=== PATIENT | female | born 1965 | race Caucasian/White ===

== ENCOUNTER 2017-06-26 14:08 | Emergency (ER) | payer MEDICAID ==
--- NOTE | 2017-06-26 14:18 | EDM.PDOC ---
ED HPI GENERAL MEDICAL PROBLEM - General Stated Complaint: POSS BLADDER INFECTION Time Seen by Provider: 06/26/17 14:08 Source of Information: Reports: Patient History Limitations: Reports: No Limitations - History of Present Illness INITIAL COMMENTS - FREE TEXT/NARRATIVE: 52 y.o.w.f came to the ed with painfull urination, like it was when she had a UTI. No N/V/D, no Dizziness or any other acute medical issues. BP141/81 Pulse 110 RR 18 Pulse ox 93 Temp 36.9 Wt, refused Onset Date: 06/26/17 Onset Time: 04:00 Duration: Hour(s): Location: Reports: Pelvis Quality: Reports: Ache, Burning Severity: Mild Improves with: Reports: Rest Worsens with: Reports: Movement Context: Reports: Other - Related Data Allergies Allergy/AdvReac Type Severity Reaction Status Date / Time No Known Allergies Allergy Verified 06/26/17 14:25 Home Meds: Home Meds Baclofen 10 mg PO Q6H #20 tablet 09/21/13 [Rx] Naproxen [Naprosyn] 500 mg PO Q12HR #20 tab 09/21/13 [Rx] Social & Family History - Tobacco Use Years of Tobacco use: 30 ED ROS GENERAL - Review of Systems Review Of Systems: See Below Constitutional: Reports: No Symptoms HEENT: Reports: No Symptoms Respiratory: Reports: No Symptoms Cardiovascular: Reports: No Symptoms Endocrine: Reports: No Symptoms GI/Abdominal: Reports: No Symptoms : Reports: Dysuria Musculoskeletal: Reports: No Symptoms Skin: Reports: No Symptoms Neurological: Reports: No Symptoms Psychiatric: Reports: No Symptoms Hematologic/Lymphatic: Reports: No Symptoms Immunologic: Reports: No Symptoms ED EXAM, RENAL/ - Physical Exam Exam: See Below Exam Limited By: No Limitations General Appearance: Alert, WD/WN, Mild Distress Eye Exam: Bilateral Eye: Normal Inspection Ears: Normal External Exam Nose: Normal Inspection Throat/Mouth: Normal Inspection Head: Atraumatic, Normocephalic Neck: Normal Inspection, Supple, Non-Tender, Full Range of Motion Respiratory/Chest: No Respiratory Distress, Lungs Clear, Normal Breath Sounds, No Accessory Muscle Use Cardiovascular: Normal Peripheral Pulses, Regular Rate, Rhythm, No Edema, No Gallop, No JVD, No Murmur, No Rub GI/Abdominal: Normal Bowel Sounds, Soft, Non-Tender, No Organomegaly, No Distention, No Abnormal Bruit, No Mass (Female) Exam: Deferred Rectal (Female) Exam: Deferred Back Exam: Normal Inspection, Full Range of Motion Extremities: Normal Inspection, Normal Range of Motion, Non-Tender, No Pedal Edema Neurological: Alert, Oriented, CN II-XII Intact, Normal Cognition, Normal Gait, No Motor/Sensory Deficits Psychiatric: Normal Affect, Normal Mood Skin Exam: Warm, Dry, Intact, Normal Color, No Rash Lymphatic: No Adenopathy Course - Vital Signs Text/Narrative:: 52 y.o.w.f came to the ed with painfull urination, like it was when she had a UTI. No N/V/D, no Dizziness or any other acute medical issues. BP141/81 Pulse 110 RR 18 Pulse ox 93 Temp 36.9 Wt, refused PE: Morbid obese 52 y.o.w.f came to the ed with painfull urinations, no other complains Las: UA neg Impression: Dysuria Tx: Pt refused further W/U Plan: D/C with instructions Last Recorded V/S: Last Vital Signs Temp 36.6 C 06/26/17 14:10 Pulse 110 H 06/26/17 14:10 Resp 18 06/26/17 14:10 BP 148/81 H 06/26/17 14:10 Pulse Ox 93 L 06/26/17 14:10 - Orders/Labs/Meds Labs: Laboratory Tests 06/26/17 Range/Units 14:17 Urine Color Yellow (YELLOW) Urine Appearance Clear (CLEAR) Urine pH 6.0 (5.0-6.5) Ur Specific [place] 1.020 (1.010-1.025) Urine Protein Negative (NEGATIVE) mg/dL Urine Glucose (UA) Normal (NEGATIVE) mg/dL Urine Ketones Negative (NEGATIVE) mg/dL Urine Occult Blood Negative (NEGATIVE) Urine Nitrite Negative (NEGATIVE) Urine Bilirubin Negative (NEGATIVE) Urine Urobilinogen Normal (NEGATIVE) mg/dL Ur Leukocyte Esterase Negative (NEGATIVE) Urine WBC 0-5 (0) Ur Squamous Epith Cells Few H (NS,R,O) Urine Bacteria Few H (NS) Departure - Departure Time of Disposition: 14:43 Disposition: Home, Self-Care 01 Condition: Good Clinical Impression: Dysuria - Discharge Information Referrals: PCP,None [Primary Care Provider] - Forms: ED Department Discharge Additional Instructions: Your UA was neg, please f/u with your PMD, come back if your symptoms get worse acutely
== END 2017-06-26 14:45 | disposition home or self-care (01) ==
LOC: FB.ED 14:08
DX: R30.0 Dysuria (principal)
CPT/HCPCS: 81001; 99283

== ENCOUNTER 2020-12-23 11:56 | Inpatient (IN) | payer MEDICAID, OTHER ==
[2020-12-23] MEDS ORDERED: Albuterol/Ipratropium 3.0-0.5 MG/3 ML Neb Soln NEB ONE ×3 (12:27→14:22)
--- NOTE | 2020-12-23 12:50 | EDM.PDOC ---
ED HPI GENERAL MEDICAL PROBLEM - General Chief Complaint: Respiratory Problem Stated Complaint: COUGH Time Seen by Provider: 12/23/20 12:10 Source of Information: Reports: Patient, Family History Limitations: Reports: No Limitations - History of Present Illness INITIAL COMMENTS - FREE TEXT/NARRATIVE: c/o sob x 2d cough, nonproductive, no temp at home PO as low as 68% this am and sig other, who lives with here, said that she need to come to ED last hospitalized 1y ago in [place], in ICU 2-3d with a mask on, not intubated on home O2 prn x last yr, pt not sure why she needs home O2, does not know her lung dx, does not think she has COPD/emphysema/asthma smokes 1 ppd takes diuretic for swelling in legs, no prior CA or CVD that she knows of EKG with SR 78 now, no ST changes, no comparison thinks she may have RAMÓN, no mask, no overnight sleep study other than her last hosp h/o recurrent ST, has a slight ST, requesting a strep test, watches a grandchild regular 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, had an umbrella like device placed in her heart at age 37, on anticoagulation for awhile, not now saw PCP Isabelle Hansen 2w ago for annual exam, no change in her meds never gets flu vax, not had COVID, did have COVID vax x 2 6m ago no nebs or HFAs at home, just O2 on "dialysis for a few days" a year ago in [place], normal BUN/creat here 1y ago slight rhinorrhea PO 86% on 2 l/min NC (her home dose) on arrival at ED did have audible wheezing and typical COPD presentation - Related Data Allergies Allergy/AdvReac Type Severity Reaction Status Date / Time No Known Allergies Allergy Verified 06/26/17 14:25 Home Meds: Home Meds Baclofen 10 mg PO Q6H #20 tablet 09/21/13 [Rx] Naproxen [Naprosyn] 500 mg PO Q12HR #20 tab 09/21/13 [Rx] Social & Family History - Family History Family Medical History: No Pertinent Family History - Tobacco Use Tobacco Use Status *Q: Current Every Day Tobacco User Years of Tobacco use: 40 Packs/Tins Daily: 1 - Caffeine Use Caffeine Use: Reports: Coffee, Soda - Recreational Drug Use Recreational Drug Use: No ED ROS GENERAL - Review of Systems Review Of Systems: See Below Constitutional: Reports: No Symptoms. Denies: Fever, Chills HEENT: Reports: No Symptoms Respiratory: Reports: Shortness of Breath, Wheezing, Cough Cardiovascular: Reports: Edema. Denies: Chest Pain Endocrine: Reports: No Symptoms GI/Abdominal: Reports: No Symptoms : Reports: No Symptoms Musculoskeletal: Reports: No Symptoms Skin: Reports: No Symptoms Neurological: Reports: No Symptoms Psychiatric: Reports: No Symptoms Hematologic/Lymphatic: Reports: No Symptoms Immunologic: Reports: No Symptoms ED EXAM, GENERAL - Physical Exam Exam: See Below Exam Limited By: No Limitations General Appearance: Alert, WD/WN, Other (moderate dyspnea, nontoxic, conversant, wearing VM) Ears: Hearing Grossly Normal Nose: Normal Inspection Throat/Mouth: Normal Inspection, Normal Lips, Normal Teeth, Normal Oropharynx Head: Atraumatic, Normocephalic Neck: Normal Inspection, Supple, Non-Tender, Full Range of Motion. No: Lymphadenopathy (R), Lymphadenopathy (L) Respiratory/Chest: Chest Non-Tender, Decreased Breath Sounds, Wheezing, Accessory Muscle Use, Prolonged Expiration, Other (fair AE, symmetric, talk 6- word sentences, using accesory muscles, purse lips, no retractions, inc'd exp phase, end exp wheeze throughout). No: Crackles, Rales, Rhonchi, Stridor, Pleural Rub, Retractions, Splinting Cardiovascular: Regular Rate, Rhythm, No Murmur, Other (1-2+ edema to knees b/l) GI/Abdominal: Soft, Non-Tender, No Distention, Other (central obesity) Back Exam: Normal Inspection, Full Range of Motion. No: CVA Tenderness (R), CVA Tenderness (L) Extremities: Normal Inspection, Non-Tender, Pedal Edema Neurological: Alert, Oriented, CN II-XII Intact, Normal Cognition, No Motor/Sensory Deficits Psychiatric: Normal Affect, Normal Mood Skin Exam: Warm, Dry, Intact, Normal Color, No Rash Lymphatic: No Adenopathy #1 Interpretation EKG Date: 12/23/20 Time: 12:30 Rhythm: NSR Rate (Beats/Min): 78 [place]: Normal P-Wave: Present QRS: Normal ST-T: Normal QT: Normal Comparison: NA - No Prior EKG (mild low voltage c/w body habitus and possible c/w COPD, no ST/ischemic changes) Course - Vital Signs Last Recorded V/S: Last Vital Signs Temp 36.7 C 12/23/20 11:56 Pulse 85 12/23/20 11:56 Resp 24 H 12/23/20 11:56 BP 153/79 H 12/23/20 11:56 Pulse Ox 86 L 12/23/20 11:56 - Orders/Labs/Meds Orders: Active Orders 24 hr Category Date Time Status Admission Status [Patient Status] [ADT] Routine ADT 12/23/20 14:13 Ordered RT Aerosol Therapy [RC] ASDIRECTED Care 12/23/20 13:37 Active Chest 1V Frontal [CR] Stat Exams 12/23/20 12:27 Taken Isolation [COMM] Routine Oth 12/23/20 12:29 Ordered EKG 12 Lead [EK] Routine Ther 12/23/20 12:27 Ordered Labs: Laboratory Tests 12/23/20 12/23/20 12/23/20 Range/Units 12:39 12:45 12:45 WBC 12.3 H (3.0-10.3) x10-3/uL RBC 4.87 (3.60-5.20) x10(6)uL Hgb 13.4 (11.4-15.5) g/dL Hct 41.0 (34.2-48.2) % MCV 84.3 (76.7-100.5) fL MCH 27.5 (23.9-33.9) pg MCHC 32.6 (31.9-34.8) g/dL RDW 17.3 H (12.3-16.5) % Plt Count 281 (151-488) x10(3)uL MPV 8.2 (7.1-12.4) fL Neut % (Auto) 68.2 (30.8-76.2) % Lymph % (Auto) 21.0 (18.4-52.1) % [place] % (Auto) 8.4 (4.4-15.7) % Eos % (Auto) 1.9 (0.6-8.1) % Baso % (Auto) 0.5 (0.2-1.5) % Neut # (Auto) 8.4 H (1.5-6.3) x10-3/uL Lymph # (Auto) 2.6 (1.0-4.4) x10-3/uL [place] # (Auto) 1.0 (0.3-1.0) x10-3/uL Eos # (Auto) 0.2 (0.0-0.8) x10-3/uL Baso # (Auto) 0.1 (0.0-0.1) x10-3/uL POC VBG pH (7.32-7.43) pH Units POC VBG pCO2 (41-51) mmHg POC VBG HCO3 (22-29) mmol/L VBG Base Excess (-2 - 3+) mmol/L O2 Delivery Device Oxygen Flow Rate LPM Sodium 143 (135-145) mmol/L Potassium 4.6 (3.5-5.3) mmol/L Chloride 104 (100-110) mmol/L Carbon Dioxide 31 (21-32) mmol/L BUN 22 H (7-18) mg/dL Creatinine 1.2 H (0.55-1.02) mg/dL Est Cr Clr Drug Dosing 50.17 mL/min Estimated GFR (MDRD) 47 L (>60) BUN/Creatinine Ratio 18.3 (9-20) Glucose 93 (80-116) mg/dL Calcium 9.4 (8.6-10.2) mg/dL Total Bilirubin 0.3 (0.1-1.3) mg/dL AST 39 H D (5-25) IU/L ALT 72 H D (12-36) U/L Alkaline Phosphatase 124 H (56-112) IU/L Troponin I (4.0-60.3) pg/mL C-Reactive Protein (0.5-0.9) mg/dL Total Protein 8.1 H (6.0-8.0) g/dL Albumin 3.3 L (3.5-5.2) g/dL Globulin 4.8 g/dL Albumin/Globulin Ratio 0.7 SARS-CoV-2 RNA (SHAYY) Negative (NEGATIVE) Group A Strep (PCR) Not detected (NOT DETECT) 12/23/20 12/23/20 Range/Units 12:45 13:01 WBC (3.0-10.3) x10-3/uL RBC (3.60-5.20) x10(6)uL Hgb (11.4-15.5) g/dL Hct (34.2-48.2) % MCV (76.7-100.5) fL MCH (23.9-33.9) pg MCHC (31.9-34.8) g/dL RDW (12.3-16.5) % Plt Count (151-488) x10(3)uL MPV (7.1-12.4) fL Neut % (Auto) (30.8-76.2) % Lymph % (Auto) (18.4-52.1) % [place] % (Auto) (4.4-15.7) % Eos % (Auto) (0.6-8.1) % Baso % (Auto) (0.2-1.5) % Neut # (Auto) (1.5-6.3) x10-3/uL Lymph # (Auto) (1.0-4.4) x10-3/uL [place] # (Auto) (0.3-1.0) x10-3/uL Eos # (Auto) (0.0-0.8) x10-3/uL Baso # (Auto) (0.0-0.1) x10-3/uL POC VBG pH 7.30 L (7.32-7.43) pH Units POC VBG pCO2 68 H (41-51) mmHg POC VBG HCO3 33 H (22-29) mmol/L VBG Base Excess 4 H (-2 - 3+) mmol/L O2 Delivery Device Non rebr mask Oxygen Flow Rate 10 LPM Sodium (135-145) mmol/L Potassium (3.5-5.3) mmol/L Chloride (100-110) mmol/L Carbon Dioxide (21-32) mmol/L BUN (7-18) mg/dL Creatinine (0.55-1.02) mg/dL Est Cr Clr Drug Dosing mL/min Estimated GFR (MDRD) (>60) BUN/Creatinine Ratio (9-20) Glucose (80-116) mg/dL Calcium (8.6-10.2) mg/dL Total Bilirubin (0.1-1.3) mg/dL AST (5-25) IU/L ALT (12-36) U/L Alkaline Phosphatase (56-112) IU/L Troponin I 7.1 (4.0-60.3) pg/mL C-Reactive Protein 5.9 H* (0.5-0.9) mg/dL Total Protein (6.0-8.0) g/dL Albumin (3.5-5.2) g/dL Globulin g/dL Albumin/Globulin Ratio SARS-CoV-2 RNA (SHAYY) (NEGATIVE) Group A Strep (PCR) (NOT DETECT) Meds: Medications Discontinued Medications Generic Name Dose Route Start Last Admin Trade Name Freq PRN Reason Stop Dose Admin Albuterol/Ipratropium 3 ml 12/23/20 12:27 12/23/20 12:33 Albuterol/Ipratropium 3.0-0.5 Mg/3 Ml Neb Soln NEB 12/23/20 12:28 3 ml ONETIME ONE Administration Albuterol/Ipratropium 3 ml 12/23/20 13:37 12/23/20 13:44 Albuterol/Ipratropium 3.0-0.5 Mg/3 Ml Neb Soln NEB 12/23/20 13:38 3 ml ONETIME ONE Administration Azithromycin 500 mg 12/23/20 14:15 Azithromycin 500 Mg Tab PO 12/23/20 14:16 ONETIME ONE Ceftriaxone Sodium 1 gm 12/23/20 14:15 Ceftriaxone 1 Gm Vial IV 12/23/20 14:16 NOW ONE Methylprednisolone Sodium Succinate 125 mg 12/23/20 14:15 Methylprednisolone Sodium Succinate 125 Mg/2 Ml Sdv IVPUSH 12/23/20 14:16 ONETIME ONE Nicotine 21 mg 12/23/20 14:13 Nicotine 21 Mg/24 Hr Patch TRDERM 12/23/20 14:14 ONETIME ONE - Re-Assessments/Exams Free Text/Narrative Re-Assessment/Exam: 12/23/20 13:46 texting on phone, stated she felt better after 1st Duoneb improved AE, still moderate insp/exp wheeze creat 1.2, up from 0.7 one yr ago trop neg, EKG without ischemic changes CxR 1v on prelim ED read without flat diaphragms, no discrete infiltrates PO 96-100% on 10 l/min VM after 1st Duoneb, pt fell asleep after 1st Duoeb, said she had not been able to sleep all night 12/23/20 13:54 Epic reviewed, hosp 11/23 to 11/[address] [facility] with trimalleolar ankle fx and acute on chronic hypercapnic resp failure that is very likely d/t underlying obesity hypoventilation syndrome with RAMÓN 12/23/20 14:17 d/w Dr Hedrick who accepted pt in admission, pt agrees pt requested nicotine patch PO 85-88% still on 3 l/min NC after Duoneb x 2, has been switched back to VM Departure - Departure Time of Disposition: 14:18 Disposition: Admitted As Inpatient 67 Condition: Fair Clinical Impression: Acute respiratory failure with hypoxia and hypercapnia, Nicotine dependence, Morbid obesity, Elevated liver function tests, CKD (chronic kidney disease), Dependent edema, Elevated C-reactive protein (CRP), Elevated total protein - Discharge Information *PRESCRIPTION DRUG MONITORING PROGRAM REVIEWED*: Not Applicable *COPY OF PRESCRIPTION DRUG MONITORING REPORT IN PATIENT NATHAN: Not Applicable Referrals: Isabelle Hansen PA-C [Primary Care Provider] - Forms: ED Department Discharge Sepsis Event Note (ED) - Evaluation Sepsis Screening Result: No Definite Risk - Focused Exam Vital Signs: Vital Signs Temp Pulse Resp BP Pulse Ox 12/23/20 11:56 36.7 C 85 24 H 153/79 H 86 L - My Orders Last 24 Hours: My Active Orders 12/23/20 12:27 Chest 1V Frontal [CR] Stat EKG 12 Lead [EK] Routine 12/23/20 12:29 Isolation [COMM] Routine 12/23/20 13:37 RT Aerosol Therapy [RC] ASDIRECTED 12/23/20 14:13 Admission Status [Patient Status] [ADT] Routine - Assessment/Plan Last 24 Hours: My Active Orders 12/23/20 12:27 Chest 1V Frontal [CR] Stat EKG 12 Lead [EK] Routine 12/23/20 12:29 Isolation [COMM] Routine 12/23/20 13:37 RT Aerosol Therapy [RC] ASDIRECTED 12/23/20 14:13 Admission Status [Patient Status] [ADT] Routine
[2020-12-23 13:05] LABS: BASE EXCESS VENOUS,POC 4 mmol/L (-2 - 3+); PCO2 VENOUS,POC 68 mmHg (41-51)
[2020-12-23 13:20] LABS: STREP A BY PCR NOT DETECTED (NOT DETECT)
[2020-12-23 13:41] LABS: CORONAVIRUS COVID-19 NAA NEGATIVE (NEGATIVE)
[2020-12-23] MEDS ORDERED: Nicotine 21 MG/24 Hr Patch TRDERM ONE (14:13)
[2020-12-23] MEDS ORDERED: cefTRIAXone 1 GM Vial IV ONE (14:15)
[2020-12-23] MEDS ORDERED: Azithromycin 500 MG Tab PO ONE (14:15)
[2020-12-23] MEDS ORDERED: methylPREDNISolone Sodium Succinate 125 MG/2 ML SDV IVPUSH ONE (14:15)
[2020-12-23] MEDS: Enoxaparin 40 MG/0.4 ML Syringe SUBCUT SCH (16:08)
--- NOTE | 2020-12-23 16:17 | PCM.HP.2 ---
H&P History of Present Illness - General Date of Service: 12/23/20 Admit Problem/Dx: Admission Diagnosis/Problem Admission Diagnosis/Problem Hypoxia Source of Information: Patient, Old Records, Provider History Limitations: Reports: No Limitations - History of Present Illness Initial Comments - Free Text/Narative: 55-year-old lady with a past medical history significant for morbid obesity with a BMI greater than 50, cigarette smoking/tobacco abuse, COPD, hypertension, and a history 1 year ago of acute on chronic hypercapnic hypoxic respiratory failure came to the emergency department for evaluation and treatment of a 2-day history of cough and shortness of breath. She was afebrile at home and is fully vaccinated against Covid. Testing for Covid, influenza, and strep were negative in the emergency department. Troponin and EKG were negative. She has a history of having been recommended for sleep apnea testing but has never been tested. She continues to smoke 1 pack of cigarettes per day. She is treated for hypertension and for edema. She is a poor historian at this time and does not know if she has been taking all of her medications as prescribed. She thinks that she was only recently prescribed her "water pill" and that she has only been taking it for about a week, and may be. She was sent home from the hospital last year with home O2 and uses it as needed. She denies chest pain, nausea, vomiting, any change in her bowel or bladder habits. She does state that she has increased edema in her bilateral lower extremities. Back Pain Score (Numeric/FACES): 9 - Related Data Allergies/Adverse Reactions: Allergies Allergy/AdvReac Type Severity Reaction Status Date / Time No Known Allergies Allergy Verified 06/26/17 14:25 Home Medications: Home Meds Aspirin 325 mg PO DAILY 12/23/20 [History] Aspirin/Acetaminophen/Caffeine [[facility] Migraine Relief Caplet] 1 tab PO DAILY PRN 12/23/20 [History] Cyclobenzaprine [Flexeril] 10 mg PO TID PRN 12/23/20 [History] Dextroamphetamine/Amphetamine [Adderall 20 mg Tablet] 20 mg PO TID 12/23/20 [History] Famotidine 40 mg PO BEDTIME 12/23/20 [History] Gabapentin [Neurontin] 3 cap PO TID 12/23/20 [History] Nicotine [Nicotine Patch] 1 patch TOP DAILY 12/23/20 [History] Promethazine [Phenergan] 25 mg PO Q4H PRN 12/23/20 [History] Torsemide 5 mg PO DAILY 12/23/20 [History] Venlafaxine [Effexor XR] 150 mg PO DAILY 12/23/20 [History] amLODIPine [Norvasc] 10 mg PO DAILY 12/23/20 [History] atorvaSTATin Calcium [Lipitor] 20 mg PO DAILY 12/23/20 [History] hydroCHLOROthiazide [Hydrochlorothiazide] 12.5 mg PO DAILY 12/23/20 [History] lisinopriL [Lisinopril] 40 mg PO DAILY 12/23/20 [History] risperiDONE [Risperidone] 1 mg PO BEDTIME 12/23/20 [History] traMADol [Ultram] 50 mg PO Q6H PRN 12/23/20 [History] traZODone 300 mg PO BEDTIME 12/23/20 [History] Social & Family History - Family History Family Medical History: No Pertinent Family History - Tobacco Use Tobacco Use Status *Q: Current Every Day Tobacco User Years of Tobacco use: 35 Packs/Tins Daily: 1 - Caffeine Use Caffeine Use: Reports: Coffee, Soda - Recreational Drug Use Recreational Drug Use: No H&P Review of Systems - Review of Systems: Review Of Systems: See Below General: Reports: Weakness HEENT: Reports: No Symptoms Pulmonary: Reports: Shortness of Breath, Wheezing, Cough Cardiovascular: Reports: No Symptoms Gastrointestinal: Reports: No Symptoms Genitourinary: Reports: No Symptoms Musculoskeletal: Reports: No Symptoms Skin: Reports: Other (Rash under her breasts and pannus) Psychiatric: Reports: No Symptoms Neurological: Reports: No Symptoms Hematologic/Lymphatic: Reports: No Symptoms Immunologic: Reports: No Symptoms Exam - Exam Exam: See Below - Vital Signs Vital Signs: Last Vital Signs Temp 36.7 C 12/23/20 11:56 Pulse 85 12/23/20 11:56 Resp 24 H 12/23/20 11:56 BP 153/79 H 12/23/20 11:56 Pulse Ox 86 L 12/23/20 11:56 Weight: 169.145 kg (Patient initially seem to be confused but once she was settled then sitting up and with a slight reversed calibered she felt better and asked for lunch) - Exam Quality Assessment: Supplemental Oxygen, DVT Prophylaxis General: Alert, Oriented, Cooperative, Mild Distress HEENT: EOMI Lungs: Decreased Breath Sounds, Crackles, Wheezing Cardiovascular: Regular Rate, Regular Rhythm, Other (Heart sounds are distant and difficult to auscultate) GI/Abdominal Exam: Normal Bowel Sounds, Non-Tender Back Exam: Normal Inspection. No: CVA Tenderness (R), CVA Tenderness (L) Extremities: Pedal Edema, Other (Bilateral lower extremity stasis dermatitis) Peripheral Pulses: 2+: Radial (L), Radial (R) Skin: Warm, Dry Neuro Extensive - Mental Status: Alert Psychiatric: Alert, Anxious - Patient Data Lab Results Last 24 hrs: Laboratory Results - last 24 hr 12/23/20 12/23/20 12/23/20 Range/Units 12:39 12:45 12:45 WBC 12.3 H (3.0-10.3) x10-3/uL RBC 4.87 (3.60-5.20) x10(6)uL Hgb 13.4 (11.4-15.5) g/dL Hct 41.0 (34.2-48.2) % MCV 84.3 (76.7-100.5) fL MCH 27.5 (23.9-33.9) pg MCHC 32.6 (31.9-34.8) g/dL RDW 17.3 H (12.3-16.5) % Plt Count 281 (151-488) x10(3)uL MPV 8.2 (7.1-12.4) fL Neut % (Auto) 68.2 (30.8-76.2) % Lymph % (Auto) 21.0 (18.4-52.1) % [place] % (Auto) 8.4 (4.4-15.7) % Eos % (Auto) 1.9 (0.6-8.1) % Baso % (Auto) 0.5 (0.2-1.5) % Neut # (Auto) 8.4 H (1.5-6.3) x10-3/uL Lymph # (Auto) 2.6 (1.0-4.4) x10-3/uL [place] # (Auto) 1.0 (0.3-1.0) x10-3/uL Eos # (Auto) 0.2 (0.0-0.8) x10-3/uL Baso # (Auto) 0.1 (0.0-0.1) x10-3/uL POC VBG pH (7.32-7.43) pH Units POC VBG pCO2 (41-51) mmHg POC VBG HCO3 (22-29) mmol/L VBG Base Excess (-2 - 3+) mmol/L O2 Delivery Device Oxygen Flow Rate LPM Sodium 143 (135-145) mmol/L Potassium 4.6 (3.5-5.3) mmol/L Chloride 104 (100-110) mmol/L Carbon Dioxide 31 (21-32) mmol/L BUN 22 H (7-18) mg/dL Creatinine 1.2 H (0.55-1.02) mg/dL Est Cr Clr Drug Dosing 50.17 mL/min Estimated GFR (MDRD) 47 L (>60) BUN/Creatinine Ratio 18.3 (9-20) Glucose 93 (80-116) mg/dL Calcium 9.4 (8.6-10.2) mg/dL Total Bilirubin 0.3 (0.1-1.3) mg/dL AST 39 H D (5-25) IU/L ALT 72 H D (12-36) U/L Alkaline Phosphatase 124 H (56-112) IU/L Troponin I (4.0-60.3) pg/mL C-Reactive Protein (0.5-0.9) mg/dL Total Protein 8.1 H (6.0-8.0) g/dL Albumin 3.3 L (3.5-5.2) g/dL Globulin 4.8 g/dL Albumin/Globulin Ratio 0.7 SARS-CoV-2 RNA (SHAYY) Negative (NEGATIVE) Group A Strep (PCR) Not detected (NOT DETECT) 12/23/20 12/23/20 Range/Units 12:45 13:01 WBC (3.0-10.3) x10-3/uL RBC (3.60-5.20) x10(6)uL Hgb (11.4-15.5) g/dL Hct (34.2-48.2) % MCV (76.7-100.5) fL MCH (23.9-33.9) pg MCHC (31.9-34.8) g/dL RDW (12.3-16.5) % Plt Count (151-488) x10(3)uL MPV (7.1-12.4) fL Neut % (Auto) (30.8-76.2) % Lymph % (Auto) (18.4-52.1) % [place] % (Auto) (4.4-15.7) % Eos % (Auto) (0.6-8.1) % Baso % (Auto) (0.2-1.5) % Neut # (Auto) (1.5-6.3) x10-3/uL Lymph # (Auto) (1.0-4.4) x10-3/uL [place] # (Auto) (0.3-1.0) x10-3/uL Eos # (Auto) (0.0-0.8) x10-3/uL Baso # (Auto) (0.0-0.1) x10-3/uL POC VBG pH 7.30 L (7.32-7.43) pH Units POC VBG pCO2 68 H (41-51) mmHg POC VBG HCO3 33 H (22-29) mmol/L VBG Base Excess 4 H (-2 - 3+) mmol/L O2 Delivery Device Non rebr mask Oxygen Flow Rate 10 LPM Sodium (135-145) mmol/L Potassium (3.5-5.3) mmol/L Chloride (100-110) mmol/L Carbon Dioxide (21-32) mmol/L BUN (7-18) mg/dL Creatinine (0.55-1.02) mg/dL Est Cr Clr Drug Dosing mL/min Estimated GFR (MDRD) (>60) BUN/Creatinine Ratio (9-20) Glucose (80-116) mg/dL Calcium (8.6-10.2) mg/dL Total Bilirubin (0.1-1.3) mg/dL AST (5-25) IU/L ALT (12-36) U/L Alkaline Phosphatase (56-112) IU/L Troponin I 7.1 (4.0-60.3) pg/mL C-Reactive Protein 5.9 H* (0.5-0.9) mg/dL Total Protein (6.0-8.0) g/dL Albumin (3.5-5.2) g/dL Globulin g/dL Albumin/Globulin Ratio SARS-CoV-2 RNA (SHAYY) (NEGATIVE) Group A Strep (PCR) (NOT DETECT) Result Diagrams: 12/23/20 12:45 12/23/20 12:45 Pierre Results Last 24 hrs: Microbiology 12/23/20 12:39 Influenza Type A Antigen Screen - Final Nasal, Unspecified NEGATIVE INFLUENZA A VIRUS AG REFERENCE RANGE: NEGATIVE Influenza Type B Antigen Screen - Final NEGATIVE INFLUENZA B VIRUS AG REFERENCE RANGE: NEGATIVE Sepsis Event Note - Evaluation Sepsis Screening Result: No Definite Risk - Focused Exam Vital Signs: Vital Signs Temp Pulse Resp BP Pulse Ox 12/23/20 11:56 36.7 C 85 24 H 153/79 H 86 L - Problem List (1) Leukocytosis SNOMED Code(s): 047698930, 112927932 ICD Code: D72.829 - ELEVATED WHITE BLOOD CELL COUNT, UNSPECIFIED Status: Acute Current Visit: Yes (2) Chronic low back pain SNOMED Code(s): 319128585 ICD Code: M54.5 - LOW BACK PAIN; G89.29 - OTHER CHRONIC PAIN Status: Chronic Current Visit: No (3) Elevated C-reactive protein (CRP) SNOMED Code(s): 140259739899039 ICD Code: R79.82 - ELEVATED C-REACTIVE PROTEIN (CRP) Status: Acute Current Visit: Yes (4) Acute respiratory failure with hypoxia and hypercapnia SNOMED Code(s): 838136047 ICD Code: J96.01 - ACUTE RESPIRATORY FAILURE WITH HYPOXIA; J96.02 - ACUTE RESPIRATORY FAILURE WITH HYPERCAPNIA Status: Acute Current Visit: Yes (5) Nicotine dependence SNOMED Code(s): 20180517 ICD Code: F17.200 - NICOTINE DEPENDENCE, UNSPECIFIED, UNCOMPLICATED Status: Chronic Current Visit: Yes (6) Morbid obesity SNOMED Code(s): 321715480 ICD Code: E66.01 - MORBID (SEVERE) OBESITY DUE TO EXCESS CALORIES Status: Chronic Current Visit: Yes (7) Dependent edema SNOMED Code(s): 573079939 ICD Code: R60.9 - EDEMA, UNSPECIFIED Status: Acute Current Visit: Yes (8) Acute respiratory acidosis SNOMED Code(s): 53633379 ICD Code: E87.2 - ACIDOSIS Status: Acute Current Visit: Yes Problem List Initiated/Reviewed/Updated: Yes Orders Last 24hrs: Active Orders 24 hr Category Date Time Status Admission Status [Patient Status] [ADT] Routine ADT 12/23/20 14:13 Active Patient Status [ADT] Routine ADT 12/23/20 15:54 Ordered Antiembolic Devices [RC] .Routine Care 12/23/20 15:55 Ordered Overnight Pulse Oximetry [RC] Click to Edit Care 12/23/20 15:52 Ordered Oxygen Therapy [RC] CONTINUOUS Care 12/23/20 15:57 Ordered POC Glucose [Blood Glucose Check, Bedside] [RC] Care 12/23/20 16:07 Ordered WITHMEALSANDBED Pulse Oximetry [RC] PRN Care 12/23/20 15:54 Ordered RT Aerosol Therapy [RC] ASDIRECTED Care 12/23/20 13:37 Active RT Aerosol Therapy [RC] ASDIRECTED Care 12/23/20 14:23 Active RT Aerosol Therapy [RC] ASDIRECTED Care 12/23/20 16:06 Ordered Telemetry Monitoring [Cardiac Monitoring] [RC] .As Care 12/23/20 15:50 Ordered Directed Up With Assistance [RC] ASDIRECTED Care 12/23/20 15:54 Ordered Vital Signs [RC] Q4H Care 12/23/20 15:54 Ordered Heart Healthy Diet [DIET] Diet 12/23/20 Dinner Ordered Chest 1V Frontal [CR] Stat Exams 12/23/20 12:27 Taken SOCRATES PREP [MYC] Routine Lab 12/23/20 16:03 Ordered PRO B-TYPE NATRIUR PEPT,BNPPRO [CHEM] Routine Lab 12/23/20 15:41 Ordered Albuterol/Ipratropium [DuoNeb 3.0-0.5 MG/3 ML] Med 12/23/20 16:06 Ordered 3 ml NEB Q2H PRN Azithromycin [Zithromax] Med 12/24/20 08:00 Ordered 500 mg PO Q24H Enoxaparin [Lovenox] Med 12/23/20 16:00 Ordered 40 mg SUBCUT Q12H cefTRIAXone [Rocephin] Med 12/24/20 08:00 Ordered 1 gm IVPUSH Q24H methylPREDNISolone Sod Succ [Solu-MEDROL] Med 12/24/20 09:00 Ordered 125 mg IVPUSH DAILY LAWRENCE Bandage [Elastic Wrap] [OM.PC] Routine Oth 12/23/20 15:58 Ordered DVT/VTE Prophylaxis Reflex [OM.PC] Per Unit Routine Oth 12/23/20 15:54 Ordered Isolation [COMM] Routine Oth 12/23/20 12:29 Ordered Pulse Oximetry Continuous Monitoring [OM.PC] Routine Oth 12/23/20 15:52 Ordered Resuscitation Status Routine Resus Stat 12/23/20 15:54 Ordered EKG 12 Lead [EK] Routine Ther 12/23/20 12:27 Ordered Medication Orders Albuterol/Ipratropium (Albuterol/Ipratropium 3.0-0.5 Mg/3 Ml Neb Soln) 3 ml NEB Q2H PRN PRN Reason: Shortness of Breath Azithromycin (Azithromycin 500 Mg Tab) 500 mg PO Q24H ANGELINE Stop: 12/25/20 23:59 Ceftriaxone Sodium (Ceftriaxone 1 Gm Vial) 1 gm IVPUSH Q24H ANGELINE Enoxaparin Sodium (Enoxaparin 40 Mg/0.4 Ml Syringe) 40 mg SUBCUT Q12H ANGELINE Last Admin: 12/23/20 16:08 Dose: 40 mg Documented by: KELECHI Methylprednisolone Sodium Succinate (Methylprednisolone Sodium Succinate 125 Mg/2 Ml Sdv) 125 mg IVPUSH DAILY [facility] Assessment/Plan Comment:: 1. Admit to inpatient for treatment of acute on chronic hypoxic, hypercapnic respiratory failure secondary to COPD, morbid obesity, and likely RAMÓN. This is all part of the obesity hypoventilation syndrome. Patient will be given supplemental oxygen titrated to greater than 88% and supplemental oxygen will be weaned off at 94%. 2. Treatment with azithromycin, 500 mg IV, for a total of 3 days; ceftriaxone, 1 g IV daily until discharge; Solu-Medrol, 125 mg IV daily for 3 days; duo nebs every 2 hours as needed for shortness of breath and/or wheezing 3. Dependent edema: We will restart patient's diuretic and wrapped the patient's legs with Lawrence bandage to the knees 4. Hypertension: Restart patient's home antihypertensive medications and monitor vital signs every 4 hours 5. Obesity: We will monitor blood sugars with meals and at bedtime and will add sliding scale insulin if indicated. Watch for hyperglycemia secondary to high- dose Solu-Medrol, heart healthy diet 6. DVT prophylaxis: 40 mg enoxaparin subcu every 12 hours 7. GI prophylaxis: Heart healthy diet, restart patient's home medicationfamotidine 40 mg tablet 8. Disposition: Pending respiratory improvement, likely 2 to 3 days
[2020-12-23] MEDS ORDERED: Ondansetron 4 MG/2 ML SDV IVPUSH PRN (16:33)
[2020-12-23] MEDS: Furosemide 20 MG/2 ML VIAL IVPUSH SCH (17:14)
[2020-12-23] MEDS: Sodium Chloride 0.9% 10 ML Syringe FLUSH PRN ×2 (17:25→23:47)
[2020-12-23] MEDS: Pantoprazole 40 MG Tab.CR PO SCH ×2 (20:47→21:03)
[2020-12-23] MEDS: risperiDONE 1 MG Tab PO SCH (20:58)
[2020-12-23] MEDS: traZODone 100 MG Tab PO SCH (20:59)
[2020-12-23 21:23] LABS: BASE EXCESS VENOUS,POC 1 mmol/L (-2 - 3+); PCO2 VENOUS,POC 81 mmHg (41-51); PH VENOUS,POC 7.21 pH Units (7.32-7.43)
[2020-12-23] MEDS: Albuterol/Ipratropium 3.0-0.5 MG/3 ML Neb Soln NEB PRN (22:48)
[2020-12-23 23:09] LABS: BASE EXCESS VENOUS,POC 2 mmol/L (-2 - 3+); PCO2 VENOUS,POC 71 mmHg (41-51); PH VENOUS,POC 7.25 pH Units (7.32-7.43)
[2020-12-23] MEDS: Albuterol/Ipratropium 3.0-0.5 MG/3 ML Neb Soln NEB SCH (23:38)
[2020-12-23] MEDS: Albuterol 0.083% 2.5 MG/3 ML Neb Soln NEB SCH (23:47)
[2020-12-23] MEDS: methylPREDNISolone Sodium Succinate 125 MG/2 ML SDV IVPUSH SCH (23:47)
[2020-12-24] MEDS: Enoxaparin 40 MG/0.4 ML Syringe SUBCUT SCH ×2 (04:06→15:35)
[2020-12-24] MEDS: Albuterol 0.083% 2.5 MG/3 ML Neb Soln NEB SCH ×4 (04:06→23:15)
[2020-12-24] MEDS: methylPREDNISolone Sodium Succinate 125 MG/2 ML SDV IVPUSH SCH (04:08)
[2020-12-24] MEDS: Albuterol/Ipratropium 3.0-0.5 MG/3 ML Neb Soln NEB SCH ×4 (04:08→23:23)
[2020-12-24] MEDS: Sodium Chloride 0.9% 10 ML Syringe FLUSH PRN ×2 (04:08→19:54)
[2020-12-24] MEDS: amLODIPine 10 MG Tab PO SCH (08:34)
[2020-12-24] MEDS: Azithromycin 500 MG Tab PO SCH (08:34)
[2020-12-24] MEDS: atorvaSTATin 20 MG Tab PO SCH (08:34)
[2020-12-24] MEDS: Furosemide 20 MG/2 ML VIAL IVPUSH SCH (08:35)
[2020-12-24] MEDS: cefTRIAXone 1 GM Vial IVPUSH SCH (08:35)
[2020-12-24] MEDS ORDERED: Hydrochlorothiazide 12.5 MG Cap PO SCH (09:00)
[2020-12-24] MEDS ORDERED: methylPREDNISolone Sodium Succinate 125 MG/2 ML SDV IVPUSH SCH (09:00)
[2020-12-24] MEDS: Venlafaxine 150 MG Cap.ER PO SCH (09:00)
--- NOTE | 2020-12-24 09:49 | PCM.PN ---
- General Info Date of Service: 12/24/20 Admission Dx/Problem (Free Text): Admission Diagnosis/Problem Admission Diagnosis/Problem Hypoxia Subjective Update: Patient states that she feels much better today and that her coughing is greatly reduced. She does have some pain in her side/muscle tightness from coughing but overall states that she feels much better Functional Status: Reports: Pain Controlled, Tolerating Diet, Ambulating, Urinat ing - Review of Systems General: Reports: No Symptoms HEENT: Reports: No Symptoms Pulmonary: Reports: Shortness of Breath, Cough Cardiovascular: Reports: No Symptoms Gastrointestinal: Reports: No Symptoms Genitourinary: Reports: No Symptoms Musculoskeletal: Reports: Foot Pain Skin: Reports: Rash Neurological: Reports: No Symptoms Psychiatric: Reports: No Symptoms - Patient Data Vitals - Most Recent: Last Vital Signs Temp 36.8 C 12/24/20 08:00 Pulse 96 12/24/20 08:00 Resp 22 H 12/24/20 08:00 BP 129/68 12/24/20 08:34 Pulse Ox 90 L 12/24/20 08:20 Weight - Most Recent: 169.145 kg (Patient initially seem to be confused but once she was settled then sitting up and with a slight reversed calibered she felt better and asked for lunch) I&O - Last 24 Hours: Intake & Output 12/23/20 12/24/20 12/24/20 22:59 06:59 14:59 Intake Total 360 Balance 360 Lab Results Last 24 Hours: Laboratory Results - last 24 hr 12/23/20 12/23/20 12/23/20 Range/Units 12:39 12:45 12:45 WBC 12.3 H (3.0-10.3) x10-3/uL RBC 4.87 (3.60-5.20) x10(6)uL Hgb 13.4 (11.4-15.5) g/dL Hct 41.0 (34.2-48.2) % MCV 84.3 (76.7-100.5) fL MCH 27.5 (23.9-33.9) pg MCHC 32.6 (31.9-34.8) g/dL RDW 17.3 H (12.3-16.5) % Plt Count 281 (151-488) x10(3)uL MPV 8.2 (7.1-12.4) fL Neut % (Auto) 68.2 (30.8-76.2) % Lymph % (Auto) 21.0 (18.4-52.1) % Scott % (Auto) 8.4 (4.4-15.7) % Eos % (Auto) 1.9 (0.6-8.1) % Baso % (Auto) 0.5 (0.2-1.5) % Neut # (Auto) 8.4 H (1.5-6.3) x10-3/uL Lymph # (Auto) 2.6 (1.0-4.4) x10-3/uL Scott # (Auto) 1.0 (0.3-1.0) x10-3/uL Eos # (Auto) 0.2 (0.0-0.8) x10-3/uL Baso # (Auto) 0.1 (0.0-0.1) x10-3/uL Add Manual Diff Neutrophils % (Manual) (46-82) % Band Neutrophils % (0-6) % Lymphocytes % (Manual) (13-37) % Monocytes % (Manual) (4-12) % POC VBG pH (7.32-7.43) pH Units POC VBG pCO2 (41-51) mmHg POC VBG HCO3 (22-29) mmol/L VBG Base Excess (-2 - 3+) mmol/L O2 Delivery Device Oxygen Flow Rate LPM Sodium 143 (135-145) mmol/L Potassium 4.6 (3.5-5.3) mmol/L Chloride 104 (100-110) mmol/L Carbon Dioxide 31 (21-32) mmol/L BUN 22 H (7-18) mg/dL Creatinine 1.2 H (0.55-1.02) mg/dL Est Cr Clr Drug Dosing 50.17 mL/min Estimated GFR (MDRD) 47 L (>60) BUN/Creatinine Ratio 18.3 (9-20) Glucose 93 (80-116) mg/dL POC Glucose (80-116) mg/dL Calcium 9.4 (8.6-10.2) mg/dL Total Bilirubin 0.3 (0.1-1.3) mg/dL AST 39 H D (5-25) IU/L ALT 72 H D (12-36) U/L Alkaline Phosphatase 124 H (56-112) IU/L Troponin I (4.0-60.3) pg/mL C-Reactive Protein (0.5-0.9) mg/dL NT-Pro-B Natriuret Pep (<=125) pg/mL Total Protein 8.1 H (6.0-8.0) g/dL Albumin 3.3 L (3.5-5.2) g/dL Globulin 4.8 g/dL Albumin/Globulin Ratio 0.7 SARS-CoV-2 RNA (SHAYY) Negative (NEGATIVE) Group A Strep (PCR) Not detected (NOT DETECT) 12/23/20 12/23/20 12/23/20 Range/Units 12:45 12:45 13:01 WBC (3.0-10.3) x10-3/uL RBC (3.60-5.20) x10(6)uL Hgb (11.4-15.5) g/dL Hct (34.2-48.2) % MCV (76.7-100.5) fL MCH (23.9-33.9) pg MCHC (31.9-34.8) g/dL RDW (12.3-16.5) % Plt Count (151-488) x10(3)uL MPV (7.1-12.4) fL Neut % (Auto) (30.8-76.2) % Lymph % (Auto) (18.4-52.1) % Scott % (Auto) (4.4-15.7) % Eos % (Auto) (0.6-8.1) % Baso % (Auto) (0.2-1.5) % Neut # (Auto) (1.5-6.3) x10-3/uL Lymph # (Auto) (1.0-4.4) x10-3/uL Scott # (Auto) (0.3-1.0) x10-3/uL Eos # (Auto) (0.0-0.8) x10-3/uL Baso # (Auto) (0.0-0.1) x10-3/uL Add Manual Diff Neutrophils % (Manual) (46-82) % Band Neutrophils % (0-6) % Lymphocytes % (Manual) (13-37) % Monocytes % (Manual) (4-12) % POC VBG pH 7.30 L (7.32-7.43) pH Units POC VBG pCO2 68 H (41-51) mmHg POC VBG HCO3 33 H (22-29) mmol/L VBG Base Excess 4 H (-2 - 3+) mmol/L O2 Delivery Device Non rebr mask Oxygen Flow Rate 10 LPM Sodium (135-145) mmol/L Potassium (3.5-5.3) mmol/L Chloride (100-110) mmol/L Carbon Dioxide (21-32) mmol/L BUN (7-18) mg/dL Creatinine (0.55-1.02) mg/dL Est Cr Clr Drug Dosing mL/min Estimated GFR (MDRD) (>60) BUN/Creatinine Ratio (9-20) Glucose (80-116) mg/dL POC Glucose (80-116) mg/dL Calcium (8.6-10.2) mg/dL Total Bilirubin (0.1-1.3) mg/dL AST (5-25) IU/L ALT (12-36) U/L Alkaline Phosphatase (56-112) IU/L Troponin I 7.1 (4.0-60.3) pg/mL C-Reactive Protein 5.9 H* (0.5-0.9) mg/dL NT-Pro-B Natriuret Pep 79 (<=125) pg/mL Total Protein (6.0-8.0) g/dL Albumin (3.5-5.2) g/dL Globulin g/dL Albumin/Globulin Ratio SARS-CoV-2 RNA (SHAYY) (NEGATIVE) Group A Strep (PCR) (NOT DETECT) 12/23/20 12/23/20 12/23/20 Range/Units 17:47 20:40 21:14 WBC (3.0-10.3) x10-3/uL RBC (3.60-5.20) x10(6)uL Hgb (11.4-15.5) g/dL Hct (34.2-48.2) % MCV (76.7-100.5) fL MCH (23.9-33.9) pg MCHC (31.9-34.8) g/dL RDW (12.3-16.5) % Plt Count (151-488) x10(3)uL MPV (7.1-12.4) fL Neut % (Auto) (30.8-76.2) % Lymph % (Auto) (18.4-52.1) % Scott % (Auto) (4.4-15.7) % Eos % (Auto) (0.6-8.1) % Baso % (Auto) (0.2-1.5) % Neut # (Auto) (1.5-6.3) x10-3/uL Lymph # (Auto) (1.0-4.4) x10-3/uL Scott # (Auto) (0.3-1.0) x10-3/uL Eos # (Auto) (0.0-0.8) x10-3/uL Baso # (Auto) (0.0-0.1) x10-3/uL Add Manual Diff Neutrophils % (Manual) (46-82) % Band Neutrophils % (0-6) % Lymphocytes % (Manual) (13-37) % Monocytes % (Manual) (4-12) % POC VBG pH 7.21 L* (7.32-7.43) pH Units POC VBG pCO2 81 H (41-51) mmHg POC VBG HCO3 32 H (22-29) mmol/L VBG Base Excess 1 (-2 - 3+) mmol/L O2 Delivery Device Simple mask Oxygen Flow Rate 4 LPM Sodium (135-145) mmol/L Potassium (3.5-5.3) mmol/L Chloride (100-110) mmol/L Carbon Dioxide (21-32) mmol/L BUN (7-18) mg/dL Creatinine (0.55-1.02) mg/dL Est Cr Clr Drug Dosing mL/min Estimated GFR (MDRD) (>60) BUN/Creatinine Ratio (9-20) Glucose (80-116) mg/dL POC Glucose 151 H 155 H (80-116) mg/dL Calcium (8.6-10.2) mg/dL Total Bilirubin (0.1-1.3) mg/dL AST (5-25) IU/L ALT (12-36) U/L Alkaline Phosphatase (56-112) IU/L Troponin I (4.0-60.3) pg/mL C-Reactive Protein (0.5-0.9) mg/dL NT-Pro-B Natriuret Pep (<=125) pg/mL Total Protein (6.0-8.0) g/dL Albumin (3.5-5.2) g/dL Globulin g/dL Albumin/Globulin Ratio SARS-CoV-2 RNA (SHAYY) (NEGATIVE) Group A Strep (PCR) (NOT DETECT) 12/23/20 12/24/20 12/24/20 Range/Units 23:06 06:15 06:15 WBC 11.4 H (3.0-10.3) x10-3/uL RBC 4.87 (3.60-5.20) x10(6)uL Hgb 13.1 (11.4-15.5) g/dL Hct 41.6 (34.2-48.2) % MCV 85.5 (76.7-100.5) fL MCH 26.9 (23.9-33.9) pg MCHC 31.5 L (31.9-34.8) g/dL RDW 17.1 H (12.3-16.5) % Plt Count 258 (151-488) x10(3)uL MPV 8.3 (7.1-12.4) fL Neut % (Auto) (30.8-76.2) % Lymph % (Auto) (18.4-52.1) % Scott % (Auto) (4.4-15.7) % Eos % (Auto) (0.6-8.1) % Baso % (Auto) (0.2-1.5) % Neut # (Auto) (1.5-6.3) x10-3/uL Lymph # (Auto) (1.0-4.4) x10-3/uL Scott # (Auto) (0.3-1.0) x10-3/uL Eos # (Auto) (0.0-0.8) x10-3/uL Baso # (Auto) (0.0-0.1) x10-3/uL Add Manual Diff Yes Neutrophils % (Manual) 92 H (46-82) % Band Neutrophils % 1 (0-6) % Lymphocytes % (Manual) 5 L (13-37) % Monocytes % (Manual) 2 L (4-12) % POC VBG pH 7.25 L (7.32-7.43) pH Units POC VBG pCO2 71 H (41-51) mmHg POC VBG HCO3 31 H (22-29) mmol/L VBG Base Excess 2 (-2 - 3+) mmol/L O2 Delivery Device Bipap Oxygen Flow Rate LPM Sodium 142 (135-145) mmol/L Potassium 4.8 (3.5-5.3) mmol/L Chloride 103 (100-110) mmol/L Carbon Dioxide 33 H (21-32) mmol/L BUN 25 H (7-18) mg/dL Creatinine 1.0 (0.55-1.02) mg/dL Est Cr Clr Drug Dosing 66.04 mL/min Estimated GFR (MDRD) 58 L (>60) BUN/Creatinine Ratio 25.0 H (9-20) Glucose 167 H (80-116) mg/dL POC Glucose (80-116) mg/dL Calcium 9.1 (8.6-10.2) mg/dL Total Bilirubin (0.1-1.3) mg/dL AST (5-25) IU/L ALT (12-36) U/L Alkaline Phosphatase (56-112) IU/L Troponin I (4.0-60.3) pg/mL C-Reactive Protein (0.5-0.9) mg/dL NT-Pro-B Natriuret Pep (<=125) pg/mL Total Protein (6.0-8.0) g/dL Albumin (3.5-5.2) g/dL Globulin g/dL Albumin/Globulin Ratio SARS-CoV-2 RNA (SHAYY) (NEGATIVE) Group A Strep (PCR) (NOT DETECT) Pierre Results Last 24 Hours: Microbiology 12/23/20 15:50 SOCRATES Preparation - Final Skin / Skin Scrapings - Breast, Left 12/23/20 12:39 Influenza Type A Antigen Screen - Final Nasal, Unspecified NEGATIVE INFLUENZA A VIRUS AG REFERENCE RANGE: NEGATIVE Influenza Type B Antigen Screen - Final NEGATIVE INFLUENZA B VIRUS AG REFERENCE RANGE: NEGATIVE Med Orders - Current: Current Medications Albuterol (Albuterol 0.083% 2.5 Mg/3 Ml Neb Soln) 2.5 mg NEB Q6H ANGELINE Last Admin: 12/24/20 04:06 Dose: 2.5 mg Documented by: Albuterol/Ipratropium (Albuterol/Ipratropium 3.0-0.5 Mg/3 Ml Neb Soln) 3 ml NEB Q2H PRN PRN Reason: Shortness of Breath Last Admin: 12/23/20 22:48 Dose: 3 ml Documented by: Albuterol/Ipratropium (Albuterol/Ipratropium 3.0-0.5 Mg/3 Ml Neb Soln) 3 ml NEB Q6H [facility] Last Admin: 12/24/20 04:08 Dose: 3 ml Documented by: Amlodipine Besylate (Amlodipine 10 Mg Tab) 10 mg PO DAILY [facility] Last Admin: 12/24/20 08:34 Dose: 10 mg Documented by: Atorvastatin Calcium (Atorvastatin 20 Mg Tab) 20 mg PO DAILY [facility] Last Admin: 12/24/20 08:34 Dose: 20 mg Documented by: Azithromycin (Azithromycin 500 Mg Tab) 500 mg PO Q24H [facility] Stop: 12/25/20 23:59 Last Admin: 12/24/20 08:34 Dose: 500 mg Documented by: Ceftriaxone Sodium (Ceftriaxone 1 Gm Vial) 1 gm IVPUSH Q24H [facility] Last Admin: 12/24/20 08:35 Dose: 1 gm Documented by: Enoxaparin Sodium (Enoxaparin 40 Mg/0.4 Ml Syringe) 40 mg SUBCUT Q12H [facility] Last Admin: 12/24/20 04:06 Dose: 40 mg Documented by: Furosemide (Furosemide 20 Mg/2 Ml Vial) 20 mg IVPUSH DAILY [facility] Last Admin: 12/24/20 08:35 Dose: 20 mg Documented by: Hydrochlorothiazide (Hydrochlorothiazide 12.5 Mg Cap) 12.5 mg PO DAILY [facility] Last Admin: 12/24/20 08:34 Dose: 12.5 mg Documented by: Ketoconazole (Ketoconazole 2% Crm 30 Gm Tube) 0 gm TOP BID [facility] Lisinopril (Lisinopril 40 Mg Tab) 40 mg PO DAILY [facility] Last Admin: 12/24/20 09:00 Dose: 40 mg Documented by: Morphine Sulfate (Morphine 2 Mg/Ml Syringe) 1 mg IVPUSH Q2H PRN PRN Reason: Pain (severe 7-10) Multi-Ingred Cream/Lotion/Oil/Oint (Zinc Oxide 20% Oint 28.35 Gm Tube) 0 gm TOP QID PRN PRN Reason: Rash Ondansetron HCl (Ondansetron 4 Mg/2 Ml Sdv) 4 mg IVPUSH Q4H PRN PRN Reason: Nausea/Vomiting Pantoprazole Sodium (Pantoprazole 40 Mg Tab.Cr) 40 mg PO BEDTIME [facility] Last Admin: 12/23/20 21:03 Dose: Not Given Documented by: Risperidone (Risperidone 1 Mg Tab) 1 mg PO BEDTIME [facility] Last Admin: 12/23/20 20:58 Dose: Not Given Documented by: Sodium Chloride (Sodium Chloride 0.9% 10 Ml Syringe) 10 ml FLUSH ASDIRECTED PRN PRN Reason: IV Use Last Admin: 12/24/20 04:08 Dose: 10 ml Documented by: Trazodone HCl (Trazodone 100 Mg Tab) 300 mg PO BEDTIME [facility] Last Admin: 12/23/20 20:59 Dose: Not Given Documented by: Venlafaxine HCl (Venlafaxine 150 Mg Cap.Er) 150 mg PO DAILY [facility] Last Admin: 12/24/20 09:00 Dose: 150 mg Documented by: Discontinued Medications Albuterol/Ipratropium (Albuterol/Ipratropium 3.0-0.5 Mg/3 Ml Neb Soln) 3 ml NEB ONETIME ONE Stop: 12/23/20 12:28 Last Admin: 12/23/20 12:33 Dose: 3 ml Documented by: Albuterol/Ipratropium (Albuterol/Ipratropium 3.0-0.5 Mg/3 Ml Neb Soln) 3 ml NEB ONETIME ONE Stop: 12/23/20 13:38 Last Admin: 12/23/20 13:44 Dose: 3 ml Documented by: Albuterol/Ipratropium (Albuterol/Ipratropium 3.0-0.5 Mg/3 Ml Neb Soln) 3 ml NEB ONETIME ONE Stop: 12/23/20 14:23 Last Admin: 12/23/20 16:06 Dose: Not Given Documented by: Azithromycin (Azithromycin 500 Mg Tab) 500 mg PO ONETIME ONE Stop: 12/23/20 14:16 Last Admin: 12/23/20 15:06 Dose: 500 mg Documented by: Ceftriaxone Sodium (Ceftriaxone 1 Gm Vial) 1 gm IV NOW ONE Stop: 12/23/20 14:16 Last Admin: 12/23/20 15:07 Dose: 1 gm Documented by: Methylprednisolone Sodium Succinate (Methylprednisolone Sodium Succinate 125 Mg/2 Ml Sdv) 125 mg IVPUSH ONETIME ONE Stop: 12/23/20 14:16 Last Admin: 12/23/20 15:06 Dose: 125 mg Documented by: Methylprednisolone Sodium Succinate (Methylprednisolone Sodium Succinate 125 Mg/2 Ml Sdv) 125 mg IVPUSH DAILY [facility] Methylprednisolone Sodium Succinate (Methylprednisolone Sodium Succinate 125 Mg/2 Ml Sdv) 125 mg IVPUSH Q6H [facility] Last Admin: 12/24/20 04:08 Dose: 125 mg Documented by: Nicotine (Nicotine 21 Mg/24 Hr Patch) 21 mg TRDERM ONETIME ONE Stop: 12/23/20 14:14 Last Admin: 12/23/20 16:08 Dose: 21 mg Documented by: Comments:: Patient was sitting in a wheelchair next to the bed watching television when I walked into the room. She is awake, alert, oriented, interactive, pleasant - Exam Quality Assessment: Supplemental Oxygen, DVT Prophylaxis General: Alert, Oriented, Cooperative, No Acute Distress HEENT: EOMI Neck: Supple. No: Lymphadenopathy Lungs: Decreased Breath Sounds, Other (Mild, brief, end expiratory wheezes in the bilateral mid to upper lung barajas, patient has significant reduced flow in the bilateral lower lobes) Cardiovascular: Regular Rate, Regular Rhythm, Other (Heart sounds are distant and difficult to auscultate) GI/Abdominal Exam: Normal Bowel Sounds, Soft, Non-Tender Back Exam: Normal Inspection. No: CVA Tenderness (R), CVA Tenderness (L) Extremities: Pedal Edema Peripheral Pulses: 2+: Radial (L), Radial (R) Skin: Other (Bilateral lower extremity stasis dermatitis) Neurological: No New Focal Deficit Psy/Mental Status: Alert, Normal Affect, Normal Mood - Patient Data Lab Results Last 24 hrs: Laboratory Results - last 24 hr 12/23/20 12/23/20 12/23/20 Range/Units 12:39 12:45 12:45 WBC 12.3 H (3.0-10.3) x10-3/uL RBC 4.87 (3.60-5.20) x10(6)uL Hgb 13.4 (11.4-15.5) g/dL Hct 41.0 (34.2-48.2) % MCV 84.3 (76.7-100.5) fL MCH 27.5 (23.9-33.9) pg MCHC 32.6 (31.9-34.8) g/dL RDW 17.3 H (12.3-16.5) % Plt Count 281 (151-488) x10(3)uL MPV 8.2 (7.1-12.4) fL Neut % (Auto) 68.2 (30.8-76.2) % Lymph % (Auto) 21.0 (18.4-52.1) % Scott % (Auto) 8.4 (4.4-15.7) % Eos % (Auto) 1.9 (0.6-8.1) % Baso % (Auto) 0.5 (0.2-1.5) % Neut # (Auto) 8.4 H (1.5-6.3) x10-3/uL Lymph # (Auto) 2.6 (1.0-4.4) x10-3/uL Scott # (Auto) 1.0 (0.3-1.0) x10-3/uL Eos # (Auto) 0.2 (0.0-0.8) x10-3/uL Baso # (Auto) 0.1 (0.0-0.1) x10-3/uL Add Manual Diff Neutrophils % (Manual) (46-82) % Band Neutrophils % (0-6) % Lymphocytes % (Manual) (13-37) % Monocytes % (Manual) (4-12) % POC VBG pH (7.32-7.43) pH Units POC VBG pCO2 (41-51) mmHg POC VBG HCO3 (22-29) mmol/L VBG Base Excess (-2 - 3+) mmol/L O2 Delivery Device Oxygen Flow Rate LPM Sodium 143 (135-145) mmol/L Potassium 4.6 (3.5-5.3) mmol/L Chloride 104 (100-110) mmol/L Carbon Dioxide 31 (21-32) mmol/L BUN 22 H (7-18) mg/dL Creatinine 1.2 H (0.55-1.02) mg/dL Est Cr Clr Drug Dosing 50.17 mL/min Estimated GFR (MDRD) 47 L (>60) BUN/Creatinine Ratio 18.3 (9-20) Glucose 93 (80-116) mg/dL POC Glucose (80-116) mg/dL Calcium 9.4 (8.6-10.2) mg/dL Total Bilirubin 0.3 (0.1-1.3) mg/dL AST 39 H D (5-25) IU/L ALT 72 H D (12-36) U/L Alkaline Phosphatase 124 H (56-112) IU/L Troponin I (4.0-60.3) pg/mL C-Reactive Protein (0.5-0.9) mg/dL NT-Pro-B Natriuret Pep (<=125) pg/mL Total Protein 8.1 H (6.0-8.0) g/dL Albumin 3.3 L (3.5-5.2) g/dL Globulin 4.8 g/dL Albumin/Globulin Ratio 0.7 SARS-CoV-2 RNA (SHAYY) Negative (NEGATIVE) Group A Strep (PCR) Not detected (NOT DETECT) 12/23/20 12/23/20 12/23/20 Range/Units 12:45 12:45 13:01 WBC (3.0-10.3) x10-3/uL RBC (3.60-5.20) x10(6)uL Hgb (11.4-15.5) g/dL Hct (34.2-48.2) % MCV (76.7-100.5) fL MCH (23.9-33.9) pg MCHC (31.9-34.8) g/dL RDW (12.3-16.5) % Plt Count (151-488) x10(3)uL MPV (7.1-12.4) fL Neut % (Auto) (30.8-76.2) % Lymph % (Auto) (18.4-52.1) % Scott % (Auto) (4.4-15.7) % Eos % (Auto) (0.6-8.1) % Baso % (Auto) (0.2-1.5) % Neut # (Auto) (1.5-6.3) x10-3/uL Lymph # (Auto) (1.0-4.4) x10-3/uL Scott # (Auto) (0.3-1.0) x10-3/uL Eos # (Auto) (0.0-0.8) x10-3/uL Baso # (Auto) (0.0-0.1) x10-3/uL Add Manual Diff Neutrophils % (Manual) (46-82) % Band Neutrophils % (0-6) % Lymphocytes % (Manual) (13-37) % Monocytes % (Manual) (4-12) % POC VBG pH 7.30 L (7.32-7.43) pH Units POC VBG pCO2 68 H (41-51) mmHg POC VBG HCO3 33 H (22-29) mmol/L VBG Base Excess 4 H (-2 - 3+) mmol/L O2 Delivery Device Non rebr mask Oxygen Flow Rate 10 LPM Sodium (135-145) mmol/L Potassium (3.5-5.3) mmol/L Chloride (100-110) mmol/L Carbon Dioxide (21-32) mmol/L BUN (7-18) mg/dL Creatinine (0.55-1.02) mg/dL Est Cr Clr Drug Dosing mL/min Estimated GFR (MDRD) (>60) BUN/Creatinine Ratio (9-20) Glucose (80-116) mg/dL POC Glucose (80-116) mg/dL Calcium (8.6-10.2) mg/dL Total Bilirubin (0.1-1.3) mg/dL AST (5-25) IU/L ALT (12-36) U/L Alkaline Phosphatase (56-112) IU/L Troponin I 7.1 (4.0-60.3) pg/mL C-Reactive Protein 5.9 H* (0.5-0.9) mg/dL NT-Pro-B Natriuret Pep 79 (<=125) pg/mL Total Protein (6.0-8.0) g/dL Albumin (3.5-5.2) g/dL Globulin g/dL Albumin/Globulin Ratio SARS-CoV-2 RNA (SHAYY) (NEGATIVE) Group A Strep (PCR) (NOT DETECT) 12/23/20 12/23/20 12/23/20 Range/Units 17:47 20:40 21:14 WBC (3.0-10.3) x10-3/uL RBC (3.60-5.20) x10(6)uL Hgb (11.4-15.5) g/dL Hct (34.2-48.2) % MCV (76.7-100.5) fL MCH (23.9-33.9) pg MCHC (31.9-34.8) g/dL RDW (12.3-16.5) % Plt Count (151-488) x10(3)uL MPV (7.1-12.4) fL Neut % (Auto) (30.8-76.2) % Lymph % (Auto) (18.4-52.1) % Scott % (Auto) (4.4-15.7) % Eos % (Auto) (0.6-8.1) % Baso % (Auto) (0.2-1.5) % Neut # (Auto) (1.5-6.3) x10-3/uL Lymph # (Auto) (1.0-4.4) x10-3/uL Scott # (Auto) (0.3-1.0) x10-3/uL Eos # (Auto) (0.0-0.8) x10-3/uL Baso # (Auto) (0.0-0.1) x10-3/uL Add Manual Diff Neutrophils % (Manual) (46-82) % Band Neutrophils % (0-6) % Lymphocytes % (Manual) (13-37) % Monocytes % (Manual) (4-12) % POC VBG pH 7.21 L* (7.32-7.43) pH Units POC VBG pCO2 81 H (41-51) mmHg POC VBG HCO3 32 H (22-29) mmol/L VBG Base Excess 1 (-2 - 3+) mmol/L O2 Delivery Device Simple mask Oxygen Flow Rate 4 LPM Sodium (135-145) mmol/L Potassium (3.5-5.3) mmol/L Chloride (100-110) mmol/L Carbon Dioxide (21-32) mmol/L BUN (7-18) mg/dL Creatinine (0.55-1.02) mg/dL Est Cr Clr Drug Dosing mL/min Estimated GFR (MDRD) (>60) BUN/Creatinine Ratio (9-20) Glucose (80-116) mg/dL POC Glucose 151 H 155 H (80-116) mg/dL Calcium (8.6-10.2) mg/dL Total Bilirubin (0.1-1.3) mg/dL AST (5-25) IU/L ALT (12-36) U/L Alkaline Phosphatase (56-112) IU/L Troponin I (4.0-60.3) pg/mL C-Reactive Protein (0.5-0.9) mg/dL NT-Pro-B Natriuret Pep (<=125) pg/mL Total Protein (6.0-8.0) g/dL Albumin (3.5-5.2) g/dL Globulin g/dL Albumin/Globulin Ratio SARS-CoV-2 RNA (SHAYY) (NEGATIVE) Group A Strep (PCR) (NOT DETECT) 12/23/20 12/24/20 12/24/20 Range/Units 23:06 06:15 06:15 WBC 11.4 H (3.0-10.3) x10-3/uL RBC 4.87 (3.60-5.20) x10(6)uL Hgb 13.1 (11.4-15.5) g/dL Hct 41.6 (34.2-48.2) % MCV 85.5 (76.7-100.5) fL MCH 26.9 (23.9-33.9) pg MCHC 31.5 L (31.9-34.8) g/dL RDW 17.1 H (12.3-16.5) % Plt Count 258 (151-488) x10(3)uL MPV 8.3 (7.1-12.4) fL Neut % (Auto) (30.8-76.2) % Lymph % (Auto) (18.4-52.1) % Scott % (Auto) (4.4-15.7) % Eos % (Auto) (0.6-8.1) % Baso % (Auto) (0.2-1.5) % Neut # (Auto) (1.5-6.3) x10-3/uL Lymph # (Auto) (1.0-4.4) x10-3/uL Scott # (Auto) (0.3-1.0) x10-3/uL Eos # (Auto) (0.0-0.8) x10-3/uL Baso # (Auto) (0.0-0.1) x10-3/uL Add Manual Diff Yes Neutrophils % (Manual) 92 H (46-82) % Band Neutrophils % 1 (0-6) % Lymphocytes % (Manual) 5 L (13-37) % Monocytes % (Manual) 2 L (4-12) % POC VBG pH 7.25 L (7.32-7.43) pH Units POC VBG pCO2 71 H (41-51) mmHg POC VBG HCO3 31 H (22-29) mmol/L VBG Base Excess 2 (-2 - 3+) mmol/L O2 Delivery Device Bipap Oxygen Flow Rate LPM Sodium 142 (135-145) mmol/L Potassium 4.8 (3.5-5.3) mmol/L Chloride 103 (100-110) mmol/L Carbon Dioxide 33 H (21-32) mmol/L BUN 25 H (7-18) mg/dL Creatinine 1.0 (0.55-1.02) mg/dL Est Cr Clr Drug Dosing 66.04 mL/min Estimated GFR (MDRD) 58 L (>60) BUN/Creatinine Ratio 25.0 H (9-20) Glucose 167 H (80-116) mg/dL POC Glucose (80-116) mg/dL Calcium 9.1 (8.6-10.2) mg/dL Total Bilirubin (0.1-1.3) mg/dL AST (5-25) IU/L ALT (12-36) U/L Alkaline Phosphatase (56-112) IU/L Troponin I (4.0-60.3) pg/mL C-Reactive Protein (0.5-0.9) mg/dL NT-Pro-B Natriuret Pep (<=125) pg/mL Total Protein (6.0-8.0) g/dL Albumin (3.5-5.2) g/dL Globulin g/dL Albumin/Globulin Ratio SARS-CoV-2 RNA (SHAYY) (NEGATIVE) Group A Strep (PCR) (NOT DETECT) Result Diagrams: 12/24/20 06:15 12/24/20 06:15 Pierre Results Last 24 hrs: Microbiology 09/25/21 15:50 SOCRATES Preparation - Final Skin / Skin Scrapings - Breast, Left 12/23/20 12:39 Influenza Type A Antigen Screen - Final Nasal, Unspecified NEGATIVE INFLUENZA A VIRUS AG REFERENCE RANGE: NEGATIVE Influenza Type B Antigen Screen - Final NEGATIVE INFLUENZA B VIRUS AG REFERENCE RANGE: NEGATIVE Sepsis Event Note - Evaluation Sepsis Screening Result: No Definite Risk - Focused Exam Vital Signs: Vital Signs Temp Pulse Resp BP BP Pulse Ox Pulse Ox 12/24/20 08:34 129/68 12/24/20 08:20 90 L 12/24/20 08:00 36.8 C 96 22 H 129/68 92 L 12/24/20 04:30 37.3 C 89 21 H 109/54 L 93 L 12/24/20 00:00 36.3 C 90 18 120/62 92 L - Problem List & Annotations (1) Leukocytosis SNOMED Code(s): 645783321, 394252846 Code(s): D72.829 - ELEVATED WHITE BLOOD CELL COUNT, UNSPECIFIED Status: Acute Current Visit: Yes (2) Chronic low back pain SNOMED Code(s): 579493267 Code(s): M54.5 - LOW BACK PAIN; G89.29 - OTHER CHRONIC PAIN Status: Chronic Current Visit: No (3) Elevated C-reactive protein (CRP) SNOMED Code(s): 396186407248541 Code(s): R79.82 - ELEVATED C-REACTIVE PROTEIN (CRP) Status: Acute Current Visit: Yes (4) Acute respiratory failure with hypoxia and hypercapnia SNOMED Code(s): 849294054 Code(s): J96.01 - ACUTE RESPIRATORY FAILURE WITH HYPOXIA; J96.02 - ACUTE RESPIRATORY FAILURE WITH HYPERCAPNIA Status: Acute Current Visit: Yes (5) Nicotine dependence SNOMED Code(s): 78734563 Code(s): F17.200 - NICOTINE DEPENDENCE, UNSPECIFIED, UNCOMPLICATED Status: Chronic Current Visit: Yes (6) Morbid obesity SNOMED Code(s): 183167643 Code(s): E66.01 - MORBID (SEVERE) OBESITY DUE TO EXCESS CALORIES Status: Chronic Current Visit: Yes (7) Dependent edema SNOMED Code(s): 364931426 Code(s): R60.9 - EDEMA, UNSPECIFIED Status: Acute Current Visit: Yes (8) Acute respiratory acidosis SNOMED Code(s): 33931486 Code(s): E87.2 - ACIDOSIS Status: Acute Current Visit: Yes (9) Intertrigo SNOMED Code(s): 14881120 Code(s): L30.4 - ERYTHEMA INTERTRIGO Status: Acute Current Visit: Yes - Problem List Review Problem List Initiated/Reviewed/Updated: Yes - My Orders Last 24 Hours: My Active Orders 12/23/20 15:50 Telemetry Monitoring [Cardiac Monitoring] [RC] .As Directed 12/23/20 15:52 Overnight Pulse Oximetry [RC] Click to Edit Pulse Oximetry Continuous Monitoring [OM.PC] Routine 12/23/20 15:54 Patient Status [ADT] Routine Pulse Oximetry [RC] PRN Up With Assistance [RC] ASDIRECTED Vital Signs [RC] 00,04,08,12,16,20 DVT/VTE Prophylaxis Reflex [OM.PC] Per Unit Routine Resuscitation Status Routine 12/23/20 15:55 Antiembolic Devices [RC] .Routine 12/23/20 15:57 Oxygen Therapy [RC] CONTINUOUS 12/23/20 15:58 SAVANNAH Bandage [Elastic Wrap] [OM.PC] Routine 12/23/20 16:00 Enoxaparin [Lovenox] 40 mg SUBCUT Q12H 12/23/20 16:06 Albuterol/Ipratropium [DuoNeb 3.0-0.5 MG/3 ML] 3 ml NEB Q2H PRN 12/23/20 16:07 POC Glucose [Blood Glucose Check, Bedside] [RC] WITHMEALSANDBED 12/23/20 Dinner Heart Healthy Diet [DIET] 12/23/20 16:30 Furosemide [Lasix] 20 mg IVPUSH DAILY 12/23/20 16:33 Ondansetron [Zofran] 4 mg IVPUSH Q4H PRN 12/23/20 16:34 Morphine 1 mg IVPUSH Q2H PRN 12/23/20 17:15 Sodium Chloride 0.9% [Saline Flush] 10 ml FLUSH ASDIRECTED PRN 12/23/20 21:00 Pantoprazole [ProTONIX] 40 mg PO BEDTIME risperiDONE [RisperiDAL] 1 mg PO BEDTIME traZODone 300 mg PO BEDTIME 12/24/20 08:00 Azithromycin [Zithromax] 500 mg PO Q24H cefTRIAXone [Rocephin] 1 gm IVPUSH Q24H 12/24/20 09:00 Venlafaxine [Effexor XR] 150 mg PO DAILY amLODIPine [Norvasc] 10 mg PO DAILY atorvaSTATin [Lipitor] 20 mg PO DAILY hydroCHLOROthiazide 12.5 mg PO DAILY lisinopriL [Prinivil] 40 mg PO DAILY 12/24/20 09:18 Zinc Oxide See Dose Instructions TOP QID PRN 12/24/20 09:30 Ketoconazole [Nizoral 2% Crm] See Dose Instructions TOP BID 12/25/20 08:00 predniSONE 40 mg PO WITHBREAKFAST - Plan Plan:: 1. Admit to inpatient for treatment of acute on chronic hypoxic, hypercapnic respiratory failure secondary to COPD, morbid obesity, and likely RAMÓN. This is all part of the obesity hypoventilation syndrome. Patient now on 4 L supplemental oxygen and satting at 90%. 2. Treatment with azithromycin, 500 mg IV, for a total of 3 daystoday is day 2; ceftriaxone, 1 g IV daily until dischargecontinue outpatient antibiotics for a total of 7 days; stop Solu-Medrol today and start prednisone 40 mg tomorrow at breakfast; duo nebs every 2 hours as needed for shortness of breath and/or wheezing 3. Dependent edema: Bilateral lower extremity edema improved today, continue diuretics and wraps 4. Hypertension: Restart patient's home antihypertensive medications and monitor vital signs every 4 hours 5. Obesity: We will monitor blood sugars with meals and at bedtime and will add sliding scale insulin if indicated. Watch for hyperglycemia secondary to high- dose Solu-Medrol, heart healthy diet 6. Intertrigo: Patient has intertrigo with candidia confirmed by [facility] under the breasts and pannus. Apply ketoconazole cream and barrier creams, keep the areas clean and dry. 7. DVT prophylaxis: 40 mg enoxaparin subcu every 12 hours 8. GI prophylaxis: Heart healthy diet, tonics 9. Disposition: Pending respiratory improvement, likely 2 days
[2020-12-24] MEDS: Ketoconazole 2% Crm 30 GM Tube TOP SCH ×2 (10:56→20:11)
[2020-12-24] MEDS: Morphine 2 MG/ML SYRINGE IVPUSH PRN (19:52)
[2020-12-24] MEDS: traZODone 100 MG Tab PO SCH (20:13)
[2020-12-24] MEDS: Pantoprazole 40 MG Tab.CR PO SCH (20:13)
[2020-12-24] MEDS: risperiDONE 1 MG Tab PO SCH (20:14)
[2020-12-25] MEDS: Enoxaparin 40 MG/0.4 ML Syringe SUBCUT SCH ×2 (04:02→16:05)
[2020-12-25] MEDS: Albuterol/Ipratropium 3.0-0.5 MG/3 ML Neb Soln NEB SCH (04:06)
[2020-12-25] MEDS: Albuterol 0.083% 2.5 MG/3 ML Neb Soln NEB SCH (04:20)
[2020-12-25] MEDS: Azithromycin 500 MG Tab PO SCH (08:37)
[2020-12-25] MEDS: predniSONE 20 MG Tab PO SCH (08:37)
[2020-12-25] MEDS: amLODIPine 10 MG Tab PO SCH (08:52)
[2020-12-25] MEDS: Venlafaxine 150 MG Cap.ER PO SCH (08:53)
[2020-12-25] MEDS: Ketoconazole 2% Crm 30 GM Tube TOP SCH ×2 (08:53→21:07)
[2020-12-25] MEDS: atorvaSTATin 20 MG Tab PO SCH (08:53)
[2020-12-25] MEDS: Sodium Chloride 0.9% 10 ML Syringe FLUSH PRN ×2 (09:01→12:07)
[2020-12-25] MEDS: Furosemide 20 MG/2 ML VIAL IVPUSH SCH (09:01)
[2020-12-25] MEDS: cefTRIAXone 1 GM Vial IVPUSH SCH (09:03)
--- NOTE | 2020-12-25 10:23 | PCM.PN ---
- General Info Date of Service: 12/25/20 Admission Dx/Problem (Free Text): Admission Diagnosis/Problem Admission Diagnosis/Problem Hypoxia Subjective Update: Patient states that she feels better overall today and has no acute complaints Functional Status: Reports: Pain Controlled, Tolerating Diet, Ambulating, Urinating - Review of Systems General: Reports: Weakness, Fatigue HEENT: Reports: No Symptoms Pulmonary: Reports: Shortness of Breath, Cough Cardiovascular: Reports: No Symptoms Gastrointestinal: Reports: No Symptoms Genitourinary: Reports: No Symptoms Musculoskeletal: Reports: Foot Pain Skin: Reports: No Symptoms Neurological: Reports: Weakness Psychiatric: Reports: No Symptoms - Patient Data Vitals - Most Recent: Last Vital Signs Temp 36.4 C 12/25/20 08:00 Pulse 99 12/25/20 08:00 Resp 22 H 12/25/20 08:00 BP 140/75 12/25/20 08:52 Pulse Ox 90 L 12/25/20 08:00 Weight - Most Recent: 169.145 kg (Patient initially seem to be confused but once she was settled then sitting up and with a slight reversed calibered she felt better and asked for lunch) I&O - Last 24 Hours: Intake & Output 12/24/20 12/25/20 12/25/20 22:59 06:59 14:59 Intake Total 640 Balance 640 Lab Results Last 24 Hours: Laboratory Results - last 24 hr 12/24/20 12/24/20 12/24/20 Range/Units 11:36 17:29 21:37 WBC (3.0-10.3) x10-3/uL RBC (3.60-5.20) x10(6)uL Hgb (11.4-15.5) g/dL Hct (34.2-48.2) % MCV (76.7-100.5) fL MCH (23.9-33.9) pg MCHC (31.9-34.8) g/dL RDW (12.3-16.5) % Plt Count (151-488) x10(3)uL MPV (7.1-12.4) fL Add Manual Diff Neutrophils % (Manual) (46-82) % Band Neutrophils % (0-6) % Lymphocytes % (Manual) (13-37) % Monocytes % (Manual) (4-12) % Sodium (135-145) mmol/L Potassium (3.5-5.3) mmol/L Chloride (100-110) mmol/L Carbon Dioxide (21-32) mmol/L BUN (7-18) mg/dL Creatinine (0.55-1.02) mg/dL Est Cr Clr Drug Dosing mL/min Estimated GFR (MDRD) (>60) BUN/Creatinine Ratio (9-20) Glucose (80-116) mg/dL POC Glucose 206 H 196 H 157 H (80-116) mg/dL Calcium (8.6-10.2) mg/dL 12/25/20 12/25/20 Range/Units 06:30 06:30 WBC 15.6 H (3.0-10.3) x10-3/uL RBC 4.75 (3.60-5.20) x10(6)uL Hgb 12.8 (11.4-15.5) g/dL Hct 40.5 (34.2-48.2) % MCV 85.1 (76.7-100.5) fL MCH 27.0 (23.9-33.9) pg MCHC 31.7 L (31.9-34.8) g/dL RDW 17.5 H (12.3-16.5) % Plt Count 264 (151-488) x10(3)uL MPV 8.5 (7.1-12.4) fL Add Manual Diff Yes Neutrophils % (Manual) 82 (46-82) % Band Neutrophils % 1 (0-6) % Lymphocytes % (Manual) 12 L (13-37) % Monocytes % (Manual) 5 (4-12) % Sodium 142 (135-145) mmol/L Potassium 4.2 (3.5-5.3) mmol/L Chloride 104 (100-110) mmol/L Carbon Dioxide 34 H (21-32) mmol/L BUN 25 H (7-18) mg/dL Creatinine 0.7 (0.55-1.02) mg/dL Est Cr Clr Drug Dosing 94.35 mL/min Estimated GFR (MDRD) > 60 (>60) BUN/Creatinine Ratio 35.7 H (9-20) Glucose 134 H (80-116) mg/dL POC Glucose (80-116) mg/dL Calcium 8.8 (8.6-10.2) mg/dL Med Orders - Current: Current Medications Albuterol/Ipratropium (Albuterol/Ipratropium 3.0-0.5 Mg/3 Ml Neb Soln) 3 ml NEB Q2H PRN PRN Reason: Shortness of Breath Last Admin: 12/23/20 22:48 Dose: 3 ml Documented by: Amlodipine Besylate (Amlodipine 10 Mg Tab) 10 mg PO DAILY [facility] Last Admin: 12/25/20 08:52 Dose: 10 mg Documented by: Atorvastatin Calcium (Atorvastatin 20 Mg Tab) 20 mg PO DAILY [facility] Last Admin: 12/25/20 08:53 Dose: 20 mg Documented by: Doxycycline Hyclate (Doxycycline 100 Mg Tab) 100 mg PO BID [facility] Stop: 12/31/20 23:59 Enoxaparin Sodium (Enoxaparin 40 Mg/0.4 Ml Syringe) 40 mg SUBCUT Q12H [facility] Last Admin: 12/25/20 04:02 Dose: 40 mg Documented by: Furosemide (Furosemide 20 Mg/2 Ml Vial) 20 mg IVPUSH DAILY [facility] Last Admin: 12/25/20 09:01 Dose: 20 mg Documented by: Ketoconazole (Ketoconazole 2% Crm 30 Gm Tube) 0 gm TOP BID [facility] Last Admin: 12/25/20 08:53 Dose: 1 applic Documented by: Lisinopril (Lisinopril 40 Mg Tab) 40 mg PO DAILY [facility] Last Admin: 12/25/20 08:52 Dose: 40 mg Documented by: Morphine Sulfate (Morphine 2 Mg/Ml Syringe) 1 mg IVPUSH Q2H PRN PRN Reason: Pain (severe 7-10) Last Admin: 12/24/20 19:52 Dose: 1 mg Documented by: Multi-Ingred Cream/Lotion/Oil/Oint (Zinc Oxide 20% Oint 28.35 Gm Tube) 0 gm TOP QID PRN PRN Reason: Rash Ondansetron HCl (Ondansetron 4 Mg/2 Ml Sdv) 4 mg IVPUSH Q4H PRN PRN Reason: Nausea/Vomiting Pantoprazole Sodium (Pantoprazole 40 Mg Tab.Cr) 40 mg PO BEDTIME [facility] Last Admin: 12/24/20 20:13 Dose: 40 mg Documented by: Prednisone (Prednisone 20 Mg Tab) 40 mg PO WITHBREAKFAST [facility] Last Admin: 12/25/20 08:37 Dose: 40 mg Documented by: Risperidone (Risperidone 1 Mg Tab) 1 mg PO BEDTIME [facility] Last Admin: 12/24/20 20:14 Dose: 1 mg Documented by: Sodium Chloride (Sodium Chloride 0.9% 10 Ml Syringe) 10 ml FLUSH ASDIRECTED PRN PRN Reason: IV Use Last Admin: 12/25/20 09:01 Dose: 10 ml Documented by: Trazodone HCl (Trazodone 100 Mg Tab) 300 mg PO BEDTIME [facility] Last Admin: 12/24/20 20:13 Dose: 300 mg Documented by: Venlafaxine HCl (Venlafaxine 150 Mg Cap.Er) 150 mg PO DAILY [facility] Last Admin: 12/25/20 08:53 Dose: 150 mg Documented by: Discontinued Medications Albuterol (Albuterol 0.083% 2.5 Mg/3 Ml Neb Soln) 2.5 mg NEB Q6H [facility] Last Admin: 12/25/20 04:20 Dose: 2.5 mg Documented by: Albuterol/Ipratropium (Albuterol/Ipratropium 3.0-0.5 Mg/3 Ml Neb Soln) 3 ml NEB ONETIME ONE Stop: 12/23/20 12:28 Last Admin: 12/23/20 12:33 Dose: 3 ml Documented by: Albuterol/Ipratropium (Albuterol/Ipratropium 3.0-0.5 Mg/3 Ml Neb Soln) 3 ml NEB ONETIME ONE Stop: 12/23/20 13:38 Last Admin: 12/23/20 13:44 Dose: 3 ml Documented by: Albuterol/Ipratropium (Albuterol/Ipratropium 3.0-0.5 Mg/3 Ml Neb Soln) 3 ml NEB ONETIME ONE Stop: 12/23/20 14:23 Last Admin: 12/23/20 16:06 Dose: Not Given Documented by: Albuterol/Ipratropium (Albuterol/Ipratropium 3.0-0.5 Mg/3 Ml Neb Soln) 3 ml NEB Q6H [facility] Last Admin: 12/25/20 04:06 Dose: 3 ml Documented by: Azithromycin (Azithromycin 500 Mg Tab) 500 mg PO ONETIME ONE Stop: 12/23/20 14:16 Last Admin: 12/23/20 15:06 Dose: 500 mg Documented by: Azithromycin (Azithromycin 500 Mg Tab) 500 mg PO Q24H [facility] Stop: 12/25/20 23:59 Last Admin: 12/25/20 08:37 Dose: 500 mg Documented by: Ceftriaxone Sodium (Ceftriaxone 1 Gm Vial) 1 gm IV NOW ONE Stop: 12/23/20 14:16 Last Admin: 12/23/20 15:07 Dose: 1 gm Documented by: Ceftriaxone Sodium (Ceftriaxone 1 Gm Vial) 1 gm IVPUSH Q24H [facility] Last Admin: 12/25/20 09:03 Dose: 1 gm Documented by: Hydrochlorothiazide (Hydrochlorothiazide 12.5 Mg Cap) 12.5 mg PO DAILY [facility] Last Admin: 12/24/20 08:34 Dose: 12.5 mg Documented by: Methylprednisolone Sodium Succinate (Methylprednisolone Sodium Succinate 125 Mg/2 Ml Sdv) 125 mg IVPUSH ONETIME ONE Stop: 12/23/20 14:16 Last Admin: 12/23/20 15:06 Dose: 125 mg Documented by: Methylprednisolone Sodium Succinate (Methylprednisolone Sodium Succinate 125 Mg/2 Ml Sdv) 125 mg IVPUSH DAILY [facility] Methylprednisolone Sodium Succinate (Methylprednisolone Sodium Succinate 125 Mg/2 Ml Sdv) 125 mg IVPUSH Q6H [facility] Last Admin: 12/24/20 04:08 Dose: 125 mg Documented by: Nicotine (Nicotine 21 Mg/24 Hr Patch) 21 mg TRDERM ONETIME ONE Stop: 12/23/20 14:14 Last Admin: 12/23/20 16:08 Dose: 21 mg Documented by: Comments:: Patient was asleep, supine, wearing her oxygen mask with 3 L of oxygen satting at 97%, snoring, witnessed apnea - Exam Quality Assessment: Supplemental Oxygen, DVT Prophylaxis General: Alert, Oriented, Cooperative, No Acute Distress HEENT: EOMI Neck: Supple Lungs: Decreased Breath Sounds, Crackles, Wheezing Cardiovascular: Regular Rate, Regular Rhythm, No Murmurs GI/Abdominal Exam: Normal Bowel Sounds, Soft, Non-Tender Back Exam: Normal Inspection Extremities: Pedal Edema Peripheral Pulses: 1+: Dorsalis Pedis (L), Dorsalis Pedis (R), 2+: Radial (L), Radial (R) Skin: Warm, Dry Neurological: No New Focal Deficit Psy/Mental Status: Alert, Normal Affect, Normal Mood - Patient Data Lab Results Last 24 hrs: Laboratory Results - last 24 hr 12/24/20 12/24/20 12/24/20 Range/Units 11:36 17:29 21:37 WBC (3.0-10.3) x10-3/uL RBC (3.60-5.20) x10(6)uL Hgb (11.4-15.5) g/dL Hct (34.2-48.2) % MCV (76.7-100.5) fL MCH (23.9-33.9) pg MCHC (31.9-34.8) g/dL RDW (12.3-16.5) % Plt Count (151-488) x10(3)uL MPV (7.1-12.4) fL Add Manual Diff Neutrophils % (Manual) (46-82) % Band Neutrophils % (0-6) % Lymphocytes % (Manual) (13-37) % Monocytes % (Manual) (4-12) % Sodium (135-145) mmol/L Potassium (3.5-5.3) mmol/L Chloride (100-110) mmol/L Carbon Dioxide (21-32) mmol/L BUN (7-18) mg/dL Creatinine (0.55-1.02) mg/dL Est Cr Clr Drug Dosing mL/min Estimated GFR (MDRD) (>60) BUN/Creatinine Ratio (9-20) Glucose (80-116) mg/dL POC Glucose 206 H 196 H 157 H (80-116) mg/dL Calcium (8.6-10.2) mg/dL 12/25/20 12/25/20 Range/Units 06:30 06:30 WBC 15.6 H (3.0-10.3) x10-3/uL RBC 4.75 (3.60-5.20) x10(6)uL Hgb 12.8 (11.4-15.5) g/dL Hct 40.5 (34.2-48.2) % MCV 85.1 (76.7-100.5) fL MCH 27.0 (23.9-33.9) pg MCHC 31.7 L (31.9-34.8) g/dL RDW 17.5 H (12.3-16.5) % Plt Count 264 (151-488) x10(3)uL MPV 8.5 (7.1-12.4) fL Add Manual Diff Yes Neutrophils % (Manual) 82 (46-82) % Band Neutrophils % 1 (0-6) % Lymphocytes % (Manual) 12 L (13-37) % Monocytes % (Manual) 5 (4-12) % Sodium 142 (135-145) mmol/L Potassium 4.2 (3.5-5.3) mmol/L Chloride 104 (100-110) mmol/L Carbon Dioxide 34 H (21-32) mmol/L BUN 25 H (7-18) mg/dL Creatinine 0.7 (0.55-1.02) mg/dL Est Cr Clr Drug Dosing 94.35 mL/min Estimated GFR (MDRD) > 60 (>60) BUN/Creatinine Ratio 35.7 H (9-20) Glucose 134 H (80-116) mg/dL POC Glucose (80-116) mg/dL Calcium 8.8 (8.6-10.2) mg/dL Result Diagrams: 12/25/20 06:30 12/25/20 06:30 Sepsis Event Note - Evaluation Sepsis Screening Result: No Definite Risk - Focused Exam Vital Signs: Vital Signs Temp Pulse Resp BP BP Pulse Ox 12/25/20 08:52 140/75 12/25/20 08:00 36.4 C 99 22 H 140/75 90 L 12/25/20 04:00 36.8 C 86 18 134/66 94 L 12/25/20 00:00 35.8 C L 89 20 121/65 95 12/24/20 23:10 95 - Problem List & Annotations (1) Leukocytosis SNOMED Code(s): 859572572, 645331640 Code(s): D72.829 - ELEVATED WHITE BLOOD CELL COUNT, UNSPECIFIED Status: Acute Current Visit: Yes (2) Chronic low back pain SNOMED Code(s): 199274302 Code(s): M54.5 - LOW BACK PAIN; G89.29 - OTHER CHRONIC PAIN Status: Chronic Current Visit: No (3) Elevated C-reactive protein (CRP) SNOMED Code(s): 127626718009053 Code(s): R79.82 - ELEVATED C-REACTIVE PROTEIN (CRP) Status: Acute Current Visit: Yes (4) Acute respiratory failure with hypoxia and hypercapnia SNOMED Code(s): 538303887 Code(s): J96.01 - ACUTE RESPIRATORY FAILURE WITH HYPOXIA; J96.02 - ACUTE RESPIRATORY FAILURE WITH HYPERCAPNIA Status: Acute Current Visit: Yes (5) Nicotine dependence SNOMED Code(s): 32958886 Code(s): F17.200 - NICOTINE DEPENDENCE, UNSPECIFIED, UNCOMPLICATED Status: Chronic Current Visit: Yes (6) Morbid obesity SNOMED Code(s): 227262367 Code(s): E66.01 - MORBID (SEVERE) OBESITY DUE TO EXCESS CALORIES Status: Chronic Current Visit: Yes (7) Dependent edema SNOMED Code(s): 705625449 Code(s): R60.9 - EDEMA, UNSPECIFIED Status: Acute Current Visit: Yes (8) Acute respiratory acidosis SNOMED Code(s): 38406633 Code(s): E87.2 - ACIDOSIS Status: Acute Current Visit: Yes (9) Intertrigo SNOMED Code(s): 80099367 Code(s): L30.4 - ERYTHEMA INTERTRIGO Status: Acute Current Visit: Yes - Problem List Review Problem List Initiated/Reviewed/Updated: Yes - My Orders Last 24 Hours: My Active Orders 12/24/20 09:30 Ketoconazole [Nizoral 2% Crm] See Dose Instructions TOP BID 12/24/20 10:30 Discontinue Telemetry Monitoring [Cardiac Monitoring Discontinue] [RC] Click to Edit 12/24/20 19:28 BIPAP Adult [RT BiPAP/CPAP] [RC] ASDIRECTED 12/25/20 08:00 predniSONE 40 mg PO WITHBREAKFAST 12/25/20 21:00 Doxycycline [Vibra-Tabs] 100 mg PO BID - Plan Plan:: 1. Admit to inpatient for treatment of acute on chronic hypoxic, hypercapnic respiratory failure secondary to COPD, morbid obesity, and likely RAMÓN. This is all part of the obesity hypoventilation syndrome. Patient now on 3 L supplemental oxygen and satting at 97%. Continue to titrate oxygen to greater than 88% but less than 95% with a goal of maintaining oxygen saturation in that range on 2 L/min or less. 2. Treatment: Patient had 3 days of IV azithromycin and ceftriaxone. Start oral doxycycline 100 mg twice daily this afternoon. Continue with prednisone t aper 3. Dependent edema: Bilateral lower extremity edema improved today, continue diuretics and wraps 4. Hypertension: Restart patient's home antihypertensive medications and monitor vital signs every 4 hours 5. Obesity: We will monitor blood sugars with meals and at bedtime and will add sliding scale insulin if indicated, heart healthy diet 6. Intertrigo: Patient has intertrigo with candidia confirmed by [facility] under the breasts and pannus. Apply ketoconazole cream and barrier creams, keep the areas clean and dry. 7. DVT prophylaxis: 40 mg enoxaparin subcu every 12 hours 8. GI prophylaxis: Heart healthy diet, tonics 9. Disposition: Pending respiratory improvement, likely 1-2 days
[2020-12-25 11:23] LABS: BASE EXCESS VENOUS,POC 8 mmol/L (-2 - 3+); PCO2 VENOUS,POC 60 mmHg (41-51); PH VENOUS,POC 7.38 pH Units (7.32-7.43)
[2020-12-25] MEDS: Morphine 2 MG/ML SYRINGE IVPUSH PRN (12:08)
[2020-12-25] MEDS: Albuterol/Ipratropium 3.0-0.5 MG/3 ML Neb Soln NEB PRN (18:51)
[2020-12-25] MEDS: risperiDONE 1 MG Tab PO SCH (21:07)
[2020-12-25] MEDS: traZODone 100 MG Tab PO SCH (21:08)
[2020-12-25] MEDS: Pantoprazole 40 MG Tab.CR PO SCH (21:08)
[2020-12-25] MEDS: Doxycycline 100 MG Tab PO SCH (21:08)
[2020-12-26] MEDS ORDERED: Acetaminophen 325 MG Tab PO PRN (07:49)
[2020-12-26] MEDS: Venlafaxine 150 MG Cap.ER PO SCH (08:29)
[2020-12-26] MEDS: predniSONE 20 MG Tab PO SCH (08:29)
[2020-12-26] MEDS: Doxycycline 100 MG Tab PO SCH (08:29)
[2020-12-26] MEDS: amLODIPine 10 MG Tab PO SCH (08:29)
[2020-12-26] MEDS: atorvaSTATin 20 MG Tab PO SCH (08:29)
[2020-12-26] MEDS: Ketoconazole 2% Crm 30 GM Tube TOP SCH (08:30)
[2020-12-26] MEDS: Furosemide 20 MG/2 ML VIAL IVPUSH SCH (08:30)
[2020-12-26] MEDS: Sodium Chloride 0.9% 10 ML Syringe FLUSH PRN (08:38)
[2020-12-26] MEDS ORDERED: Enoxaparin 40 MG/0.4 ML Syringe SUBCUT SCH (09:00)
--- NOTE | 2020-12-26 09:22 | PCM.DCSUM1 ---
Discharge Summary - Hospital Course Free Text/Narrative:: Patient reported to the emergency department with a 2-day history of cough and shortness of breath. She is fully vaccinated against Covid, Covid, influenza AMB, and strep were negative in the emergency department, she was found to be in acute hypercapnic, hypoxic respiratory failure with mild venous acidosis. She was treated with antibiotics, oxygen therapy, and diuresis. Patient's past medical history was significant for morbid obesity and she likely has a component of obesity hypoventilation syndrome as well as obstructive sleep apnea. She does not have a CPAP or BiPAP at home. She does have home O2 that she usually titrates but never uses more than 2 or 3 L. Patient improved during her hospital stay with improved lung sounds and is now 92 to 94% on 1 L. Patient will be discharged home after being switched to oral doxycycline to complete a total of 10 days of treatment. Diagnosis: Stroke: No - Discharge Data Discharge Date: 12/26/20 Discharge Disposition: Home, Self-Care 01 Condition: Stable - Referral to Home Health Primary Care Physician: Isabelle Hansen PA-C - Discharge Diagnosis/Problem(s) (1) Leukocytosis SNOMED Code(s): 935548120, 710278894 ICD Code: D72.829 - ELEVATED WHITE BLOOD CELL COUNT, UNSPECIFIED Status: Acute Current Visit: Yes (2) Chronic low back pain SNOMED Code(s): 776120138 ICD Code: M54.5 - LOW BACK PAIN; G89.29 - OTHER CHRONIC PAIN Status: Chronic Current Visit: No (3) Elevated C-reactive protein (CRP) SNOMED Code(s): 497542435636374 ICD Code: R79.82 - ELEVATED C-REACTIVE PROTEIN (CRP) Status: Acute Current Visit: Yes (4) Acute respiratory failure with hypoxia and hypercapnia SNOMED Code(s): 410823697 ICD Code: J96.01 - ACUTE RESPIRATORY FAILURE WITH HYPOXIA; J96.02 - ACUTE RESPIRATORY FAILURE WITH HYPERCAPNIA Status: Acute Current Visit: Yes (5) Nicotine dependence SNOMED Code(s): 09590230 ICD Code: F17.200 - NICOTINE DEPENDENCE, UNSPECIFIED, UNCOMPLICATED Status: Chronic Current Visit: Yes (6) Morbid obesity SNOMED Code(s): 517213236 ICD Code: E66.01 - MORBID (SEVERE) OBESITY DUE TO EXCESS CALORIES Status: Chronic Current Visit: Yes (7) Dependent edema SNOMED Code(s): 474276330 ICD Code: R60.9 - EDEMA, UNSPECIFIED Status: Acute Current Visit: Yes (8) Acute respiratory acidosis SNOMED Code(s): 80307069 ICD Code: E87.2 - ACIDOSIS Status: Acute Current Visit: Yes (9) Intertrigo SNOMED Code(s): 51352995 ICD Code: L30.4 - ERYTHEMA INTERTRIGO Status: Acute Current Visit: Yes - Patient Instructions Diet: Heart Healthy Diet Activity: As Tolerated Driving: Do Not Drive Showering/Bathing: May Shower - Discharge Plan *PRESCRIPTION DRUG MONITORING PROGRAM REVIEWED*: Not Applicable *COPY OF PRESCRIPTION DRUG MONITORING REPORT IN PATIENT NATHAN: Not Applicable Prescriptions/Med Rec: Ketoconazole [Nizoral 2% Crm] 1 applic TOP BID #1 tube Doxycycline [Vibra-Tabs] 100 mg PO BID #12 tablet Home Medications: Home Meds Aspirin 325 mg PO DAILY 12/23/20 [History] Aspirin/Acetaminophen/Caffeine [[facility] Migraine Relief Caplet] 1 tab PO DAILY PRN 12/23/20 [History] Cyclobenzaprine [Flexeril] 10 mg PO TID PRN 12/23/20 [History] Dextroamphetamine/Amphetamine [Adderall 20 mg Tablet] 20 mg PO TID 12/23/20 [History] Famotidine 40 mg PO BEDTIME 12/23/20 [History] Gabapentin [Neurontin] 3 cap PO TID 12/23/20 [History] Nicotine [Nicotine Patch] 1 patch TOP DAILY 12/23/20 [History] Promethazine [Phenergan] 25 mg PO Q4H PRN 12/23/20 [History] Torsemide 5 mg PO DAILY 12/23/20 [History] Venlafaxine [Effexor XR] 150 mg PO DAILY 12/23/20 [History] amLODIPine [Norvasc] 10 mg PO DAILY 12/23/20 [History] atorvaSTATin Calcium [Lipitor] 20 mg PO DAILY 12/23/20 [History] lisinopriL [Lisinopril] 40 mg PO DAILY 12/23/20 [History] risperiDONE [Risperidone] 1 mg PO BEDTIME 12/23/20 [History] traMADol [Ultram] 50 mg PO Q6H PRN 12/23/20 [History] traZODone 300 mg PO BEDTIME 12/23/20 [History] Doxycycline [Vibra-Tabs] 100 mg PO BID #12 tablet 12/26/20 [Rx] Ketoconazole [Nizoral 2% Crm] 1 applic TOP BID #1 tube 12/26/20 [Rx] Patient Handouts: Health Risks of Smoking, Bariatric Surgery Information, Intertrigo, Acute Respiratory Failure, Adult, Edema, [id number], Peripheral Edema Forms: ED Department Discharge Referrals: Isabelle Hansen PA-C [Primary Care Provider] - - Discharge Summary/Plan Comment DC Time >30 min.: Yes Total # of Minutes for Discharge Time: 45 Discharge Summary/Plan Comment: Patient strongly encouraged to quit smoking. Discussed the benefits of smoking cessation and risk of exposure to any particular including cigarette smoke. Discussed weight loss and benefits of weight loss. Patient encouraged to follow-up with primary care physician to pursue smoking cessation, weight loss, and possibly bariatric surgery. Patient encouraged to complete antibiotic course. Patient encouraged to use home O2 as directed. - General Info Date of Service: 12/26/20 Admission Dx/Problem (Free Text: Admission Diagnosis/Problem Admission Diagnosis/Problem Hypoxia Subjective Update: Patient states that she feels better overall today and has no acute complaints. She states she is ready to go home Functional Status: Reports: Pain Controlled, Tolerating Diet, Ambulating, Urinating - Review of Systems General: Reports: No Symptoms HEENT: Reports: No Symptoms Pulmonary: Reports: Shortness of Breath. Denies: Pleuritic Chest Pain Cardiovascular: Reports: No Symptoms Gastrointestinal: Reports: No Symptoms Genitourinary: Reports: No Symptoms Musculoskeletal: Reports: No Symptoms Skin: Reports: No Symptoms Neurological: Reports: No Symptoms Psychiatric: Reports: No Symptoms - Patient Data Vitals - Most Recent: Last Vital Signs Temp 36.2 C 12/26/20 07:55 Pulse 89 12/26/20 07:55 Resp 20 12/26/20 07:55 BP 151/68 H 12/26/20 08:29 Pulse Ox 91 L 12/26/20 07:55 Weight - Most Recent: 169.145 kg (Patient initially seem to be confused but once she was settled then sitting up and with a slight reversed calibered she felt better and asked for lunch) Lab Results - Last 24 hrs: Laboratory Results - last 24 hr 12/25/20 12/25/20 12/25/20 Range/Units 11:01 11:19 16:40 WBC (3.0-10.3) x10-3/uL RBC (3.60-5.20) x10(6)uL Hgb (11.4-15.5) g/dL Hct (34.2-48.2) % MCV (76.7-100.5) fL MCH (23.9-33.9) pg MCHC (31.9-34.8) g/dL RDW (12.3-16.5) % Plt Count (151-488) x10(3)uL MPV (7.1-12.4) fL Neut % (Auto) (30.8-76.2) % Lymph % (Auto) (18.4-52.1) % Reynolds % (Auto) (4.4-15.7) % Eos % (Auto) (0.6-8.1) % Baso % (Auto) (0.2-1.5) % Neut # (Auto) (1.5-6.3) x10-3/uL Lymph # (Auto) (1.0-4.4) x10-3/uL Reynolds # (Auto) (0.3-1.0) x10-3/uL Eos # (Auto) (0.0-0.8) x10-3/uL Baso # (Auto) (0.0-0.1) x10-3/uL POC VBG pH 7.38 (7.32-7.43) pH Units POC VBG pCO2 60 H (41-51) mmHg POC VBG HCO3 36 H (22-29) mmol/L VBG Base Excess 8 H (-2 - 3+) mmol/L O2 Delivery Device Nasal cannula Oxygen Flow Rate 3 LPM POC Glucose 152 H 124 H (80-116) mg/dL 12/25/20 12/26/20 Range/Units 21:06 06:25 WBC 11.2 H (3.0-10.3) x10-3/uL RBC 4.75 (3.60-5.20) x10(6)uL Hgb 12.9 (11.4-15.5) g/dL Hct 40.2 (34.2-48.2) % MCV 84.8 (76.7-100.5) fL MCH 27.2 (23.9-33.9) pg MCHC 32.1 (31.9-34.8) g/dL RDW 17.1 H (12.3-16.5) % Plt Count 235 (151-488) x10(3)uL MPV 8.4 (7.1-12.4) fL Neut % (Auto) 68.0 (30.8-76.2) % Lymph % (Auto) 22.9 (18.4-52.1) % Reynolds % (Auto) 7.8 (4.4-15.7) % Eos % (Auto) 0.5 L (0.6-8.1) % Baso % (Auto) 0.8 (0.2-1.5) % Neut # (Auto) 7.6 H (1.5-6.3) x10-3/uL Lymph # (Auto) 2.6 (1.0-4.4) x10-3/uL Reynolds # (Auto) 0.9 (0.3-1.0) x10-3/uL Eos # (Auto) 0.1 (0.0-0.8) x10-3/uL Baso # (Auto) 0.1 (0.0-0.1) x10-3/uL POC VBG pH (7.32-7.43) pH Units POC VBG pCO2 (41-51) mmHg POC VBG HCO3 (22-29) mmol/L VBG Base Excess (-2 - 3+) mmol/L O2 Delivery Device Oxygen Flow Rate LPM POC Glucose 118 H (80-116) mg/dL Med Orders - Current: Current Medications Acetaminophen (Acetaminophen 325 Mg Tab) 325 mg PO Q4H PRN PRN Reason: Pain Last Admin: 12/26/20 08:33 Dose: 325 mg Documented by: Albuterol/Ipratropium (Albuterol/Ipratropium 3.0-0.5 Mg/3 Ml Neb Soln) 3 ml NEB Q2H PRN PRN Reason: Shortness of Breath Last Admin: 12/25/20 18:51 Dose: 3 ml Documented by: Amlodipine Besylate (Amlodipine 10 Mg Tab) 10 mg PO DAILY ANGELINE Last Admin: 12/26/20 08:29 Dose: 10 mg Documented by: Atorvastatin Calcium (Atorvastatin 20 Mg Tab) 20 mg PO DAILY [facility] Last Admin: 12/26/20 08:29 Dose: 20 mg Documented by: Doxycycline Hyclate (Doxycycline 100 Mg Tab) 100 mg PO BID [facility] Stop: 12/31/20 23:59 Last Admin: 12/26/20 08:29 Dose: 100 mg Documented by: Enoxaparin Sodium (Enoxaparin 40 Mg/0.4 Ml Syringe) 40 mg SUBCUT Q12H [facility] Last Admin: 12/26/20 08:30 Dose: 40 mg Documented by: Furosemide (Furosemide 20 Mg/2 Ml Vial) 20 mg IVPUSH DAILY [facility] Last Admin: 12/26/20 08:30 Dose: 20 mg Documented by: Ketoconazole (Ketoconazole 2% Crm 30 Gm Tube) 0 gm TOP BID [facility] Last Admin: 12/26/20 08:30 Dose: 1 applic Documented by: Lisinopril (Lisinopril 40 Mg Tab) 40 mg PO DAILY [facility] Last Admin: 12/26/20 08:29 Dose: 40 mg Documented by: Morphine Sulfate (Morphine 2 Mg/Ml Syringe) 1 mg IVPUSH Q2H PRN PRN Reason: Pain (severe 7-10) Last Admin: 12/25/20 12:08 Dose: 1 mg Documented by: Multi-Ingred Cream/Lotion/Oil/Oint (Zinc Oxide 20% Oint 28.35 Gm Tube) 0 gm TOP QID PRN PRN Reason: Rash Ondansetron HCl (Ondansetron 4 Mg/2 Ml Sdv) 4 mg IVPUSH Q4H PRN PRN Reason: Nausea/Vomiting Pantoprazole Sodium (Pantoprazole 40 Mg Tab.Cr) 40 mg PO BEDTIME [facility] Last Admin: 12/25/20 21:08 Dose: 40 mg Documented by: Prednisone (Prednisone 20 Mg Tab) 40 mg PO WITHBREAKFAST [facility] Last Admin: 12/26/20 08:29 Dose: 40 mg Documented by: Risperidone (Risperidone 1 Mg Tab) 1 mg PO BEDTIME [facility] Last Admin: 12/25/20 21:07 Dose: 1 mg Documented by: Sodium Chloride (Sodium Chloride 0.9% 10 Ml Syringe) 10 ml FLUSH ASDIRECTED PRN PRN Reason: IV Use Last Admin: 12/26/20 08:38 Dose: 10 ml Documented by: Trazodone HCl (Trazodone 100 Mg Tab) 300 mg PO BEDTIME [facility] Last Admin: 12/25/20 21:08 Dose: 300 mg Documented by: Venlafaxine HCl (Venlafaxine 150 Mg Cap.Er) 150 mg PO DAILY [facility] Last Admin: 12/26/20 08:29 Dose: 150 mg Documented by: Discontinued Medications Albuterol (Albuterol 0.083% 2.5 Mg/3 Ml Neb Soln) 2.5 mg NEB Q6H [facility] Last Admin: 12/25/20 04:20 Dose: 2.5 mg Documented by: Albuterol/Ipratropium (Albuterol/Ipratropium 3.0-0.5 Mg/3 Ml Neb Soln) 3 ml NEB ONETIME ONE Stop: 12/23/20 12:28 Last Admin: 12/23/20 12:33 Dose: 3 ml Documented by: Albuterol/Ipratropium (Albuterol/Ipratropium 3.0-0.5 Mg/3 Ml Neb Soln) 3 ml NEB ONETIME ONE Stop: 12/23/20 13:38 Last Admin: 12/23/20 13:44 Dose: 3 ml Documented by: Albuterol/Ipratropium (Albuterol/Ipratropium 3.0-0.5 Mg/3 Ml Neb Soln) 3 ml NEB ONETIME ONE Stop: 12/23/20 14:23 Last Admin: 12/23/20 16:06 Dose: Not Given Documented by: Albuterol/Ipratropium (Albuterol/Ipratropium 3.0-0.5 Mg/3 Ml Neb Soln) 3 ml NEB Q6H [facility] Last Admin: 12/25/20 04:06 Dose: 3 ml Documented by: Azithromycin (Azithromycin 500 Mg Tab) 500 mg PO ONETIME ONE Stop: 12/23/20 14:16 Last Admin: 12/23/20 15:06 Dose: 500 mg Documented by: Azithromycin (Azithromycin 500 Mg Tab) 500 mg PO Q24H [facility] Stop: 12/25/20 23:59 Last Admin: 12/25/20 08:37 Dose: 500 mg Documented by: Ceftriaxone Sodium (Ceftriaxone 1 Gm Vial) 1 gm IV NOW ONE Stop: 12/23/20 14:16 Last Admin: 12/23/20 15:07 Dose: 1 gm Documented by: Ceftriaxone Sodium (Ceftriaxone 1 Gm Vial) 1 gm IVPUSH Q24H [facility] Last Admin: 12/25/20 09:03 Dose: 1 gm Documented by: Enoxaparin Sodium (Enoxaparin 40 Mg/0.4 Ml Syringe) 40 mg SUBCUT Q12H [facility] Last Admin: 12/25/20 16:05 Dose: 40 mg Documented by: Hydrochlorothiazide (Hydrochlorothiazide 12.5 Mg Cap) 12.5 mg PO DAILY [facility] Last Admin: 12/24/20 08:34 Dose: 12.5 mg Documented by: Methylprednisolone Sodium Succinate (Methylprednisolone Sodium Succinate 125 Mg/2 Ml Sdv) 125 mg IVPUSH ONETIME ONE Stop: 12/23/20 14:16 Last Admin: 12/23/20 15:06 Dose: 125 mg Documented by: Methylprednisolone Sodium Succinate (Methylprednisolone Sodium Succinate 125 Mg/2 Ml Sdv) 125 mg IVPUSH DAILY [facility] Methylprednisolone Sodium Succinate (Methylprednisolone Sodium Succinate 125 Mg/2 Ml Sdv) 125 mg IVPUSH Q6H [facility] Last Admin: 12/24/20 04:08 Dose: 125 mg Documented by: Nicotine (Nicotine 21 Mg/24 Hr Patch) 21 mg TRDERM ONETIME ONE Stop: 12/23/20 14:14 Last Admin: 12/23/20 16:08 Dose: 21 mg Documented by: Comments:: Patient was able to sit up in bed and stand up next to the bed without any assistance and without any difficulties. Patient was able to stand throughout the interview and physical exam without any difficulties - Exam Quality Assessment: Reports: Supplemental Oxygen, DVT Prophylaxis General: Reports: Alert, Oriented, Cooperative, No Acute Distress HEENT: Reports: EOMI Neck: Reports: Supple. Denies: Lymphadenopathy Lungs: Reports: Decreased Breath Sounds, Crackles, Other (Breath sounds are distant, no obvious wheezes, there is improvement from yesterday but still mild crackles in the lower lobes) Cardiovascular: Reports: Regular Rate, Regular Rhythm, Other (Heart sounds are distant and difficult to auscultate) GI/Abdominal Exam: Normal Bowel Sounds, Soft, Non-Tender Back Exam: Reports: Normal Inspection. Denies: CVA Tenderness (R), CVA Tenderness (L) Extremities: Pedal Edema Skin: Reports: Warm, Dry Neurological: Reports: No New Focal Deficit Psy/Mental Status: Reports: Alert, Anxious
== END 2020-12-26 11:50 | disposition home or self-care (01) | DRG 189 ==
LOC: FB.ED 11:56 → FB.MS 14:23
PROVIDERS: ADMIT Student in an Organized Health Care Education/Training Program; ATTEND Student in an Organized Health Care Education/Training Program
DX: J96.01 Acute respiratory failure with hypoxia (principal); E87.2 Acidosis; E66.2 Morbid (severe) obesity with alveolar hypoventilation; Z68.43 Body mass index [BMI] 50.0-59.9, adult; J96.02 Acute respiratory failure with hypercapnia; D72.829 Elevated white blood cell count, unspecified; G89.29 Other chronic pain; M54.5 Low back pain; R79.82 Elevated C-reactive protein (CRP); F17.210 Nicotine dependence, cigarettes, uncomplicated; L30.4 Erythema intertrigo; I12.9 Hypertensive chronic kidney disease with stage 1 through stage 4 chronic kidney disease, or unspecified chronic kidney disease; N18.9 Chronic kidney disease, unspecified; J44.9 Chronic obstructive pulmonary disease, unspecified; Z20.822 Contact with and (suspected) exposure to COVID-19; Z79.82 Long term (current) use of aspirin; Z79.899 Other long term (current) drug therapy
CPT/HCPCS: 36415; 71045; 80048; 80053; 82947; 83880; 84484; 85025; 86140; 87220; 87651-QW; 87804; 87804-59; 93005; 94640; 94660; 96374; 96375; 99285-25; A9270-GY; J0696; J1650; J1940; J2270; J2930; J7512; J7620-GY; U0002

== ENCOUNTER 2021-12-06 19:43 | Emergency (ER) | payer MEDICAID ==
[2021-12-06] MEDS ORDERED: Albuterol/Ipratropium 3.0-0.5 MG/3 ML Neb Soln NEB STA (20:36)
[2021-12-06] MEDS ORDERED: Amoxicillin/Clavulanate K 875-125 MG Tab PO STA (20:36)
[2021-12-06] MEDS ORDERED: methylPREDNISolone Sodium Succinate 125 MG/2 ML SDV IM STA (20:36)
[2021-12-06 21:01] LABS: BASE EXCESS VENOUS,POC 7 mmol/L (-2 - 3+); PCO2 VENOUS,POC 54 mmHg (41-51)
[2021-12-06 21:08] LABS: ESTIMATED GFR 87 mL/min (>60)
== END 2021-12-06 22:00 | disposition home or self-care (01) ==
LOC: FB.ED 19:43
DX: J44.1 Chronic obstructive pulmonary disease with (acute) exacerbation (principal); I10 Essential (primary) hypertension; E66.9 Obesity, unspecified; Z79.82 Long term (current) use of aspirin; Z79.899 Other long term (current) drug therapy; Z20.822 Contact with and (suspected) exposure to COVID-19
CPT/HCPCS: 36415; 71045; 80053; 83880; 84484; 85025; 87635; 94640; 96372; 99285; A9270; J2930; J7620; U0002

== ENCOUNTER 2023-12-10 20:56 | Emergency (ER) | payer MEDICAID | END 2023-12-10 22:25 | disposition home or self-care (01) | LOC: FB.ED 20:56 | DX: U07.1 COVID-19 (principal); I10 Essential (primary) hypertension; J44.9 Chronic obstructive pulmonary disease, unspecified; E66.9 Obesity, unspecified; Z13.89 Encounter for screening for other disorder; F17.210 Nicotine dependence, cigarettes, uncomplicated; Z79.899 Other long term (current) drug therapy; Z79.82 Long term (current) use of aspirin; Z68.34 Body mass index [BMI] 34.0-34.9, adult | CPT/HCPCS: 99284; U0002 ==